=== PATIENT | male | born 1965 ===

== ENCOUNTER 2021-06-27 17:35 | Emergency (ER) | payer OTHER, SELFPAY | END 2021-06-27 19:30 | disposition left against medical advice (07) | PROVIDERS: Emergency Provider Emergency Medicine; PCP Internal Medicine | DX: R05.9 Cough, unspecified (principal); M79.10 Myalgia, unspecified site; R68.83 Chills (without fever) ==

== ENCOUNTER 2021-06-29 21:26 | Emergency (ER) | payer OTHER, SELFPAY ==
--- NOTE | ~2021-06-29 | CT_ITS ---
EXAMINATION: CT ABDOMEN AND PELVIS WITHOUT CONTRAST CLINICAL INFORMATION: Abdominal pain COMPARISON: 02/04/2018 TECHNIQUE: Multidetector volumetric imaging was performed from the superior aspect of the liver through the pubic symphysis. Sagittal and coronal reformatted images were obtained on the technologist's workstation. This CT examination was performed using dose optimization techniques as appropriate, variously including the following: *Automated exposure control *Adjustment of mA and/or kV according to patient size (this includes techniques or standardized protocols for targeted exams where dose is matched to indication/reason for exam; i.e. extremities or head) *Use of iterative reconstruction technique DLP: 405 mGy-cm FINDINGS: LUNG BASES: Tree-in-bud nodular groundglass opacities are seen throughout the lung bases. Mild bronchiectasis. LIVER, GALLBLADDER, AND BILIARY TREE: The liver is normal in size, shape, and attenuation. No focal hepatic lesion or biliary ductal dilatation is present. The gallbladder is unremarkable with no evidence of radiopaque gallstones, gallbladder wall thickening, or obvious pericholecystic inflammatory changes. PANCREAS: Unremarkable. SPLEEN: The spleen is enlarged measuring 14.6 cm in CC dimension. No focal splenic lesion. ADRENAL GLANDS: Unremarkable. KIDNEYS AND URETERS: The kidneys are normal in size, shape, and attenuation. No hydronephrosis, hydroureter, or calculi seen. No perinephric stranding. BLADDER: Unremarkable. GASTROINTESTINAL TRACT: The stomach is unremarkable. Normal caliber small bowel. No obstruction. Mild colonic wall thickening involving the descending colon and proximal sigmoid colon. While there is scattered colonic diverticulosis, this does not appear to represent diverticulitis. No significant formation of the adjacent fat.. ABDOMINAL WALL: No significant hernia is appreciated. LYMPH NODES: Normal. VASCULAR: Normal caliber aorta with mild atherosclerotic calcification. PELVIC VISCERA: The prostate and seminal vesicles are unremarkable. OSSEOUS STRUCTURES: No acute or suspicious osseous abnormality. Mild degenerative change of the spine. CT/CT abdomen pelvis wo con IMPRESSION: Mild wall thickening of the descending colon and sigmoid colon may represent colitis. No significant inflammatory changes of the fat. Mild splenomegaly. Fleischner guidelines were followed.
--- NOTE | 2021-06-29 21:30 | ECG_ITS ---
Test Reason : abdominal pain Blood Pressure : / mmHG Vent. Rate : 080 BPM Atrial Rate : 080 BPM P-R Int : 116 ms QRS Dur : 106 ms QT Int : 418 ms P-R-T Axes : 068 056 061 degrees QTc Int : 482 ms Normal sinus rhythm Prolonged QT Abnormal ECG When compared with ECG of 25-MAR-2017 10:33, No significant change was found Referred By: Viola Nolasco Electronically Signed By:Rashi Valladares
[2021-06-29 21:34] VITALS: BP 130/80; BP 132/96; PULSE 83; PULSE 90; RESP 16; O2SAT 96; O2SAT 98; BMI 22.7
--- NOTE | 2021-06-29 21:37 | ED_ITS ---
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 Related Data Home Medications Medication Instructions Recorded Confirmed cyanocobalamin (vitamin B-12) 2,000 mcg PO DAILY 12/19/20 12/19/20 1,000 mcg tablet (Vitamin B-12) folic acid 1 mg tablet 1 mg PO DAILY 12/19/20 12/19/20 magnesium oxide 400 mg (241.3 mg mg PO 12/19/20 12/19/20 magnesium) tablet quetiapine 50 mg tablet 50 mg PO BEDTIME 12/19/20 12/19/20 Previous Rx's Medication Instructions Recorded lancets 28 gauge (FreeStyle #100 ea 10/09/20 Lancets) blood sugar diagnostic (FreeStyle #10 ea 10/16/20 Lite Strips) metformin 1,000 mg tablet 1,000 mg PO DAILY #90 tab 01/24/21 ondansetron 4 mg disintegrating 4 mg PO Q6H PRN #10 tab 06/29/21 tablet Allergies Allergy/AdvReac Type Severity Reaction Status Date / Time No Known Allergies Allergy Verified 12/19/20 11:02 Review of Systems Review of Systems: Pertinent positives and negatives as stated in HPI 10 point review of systems is otherwise negative. [facility] Past Medical History Source: nursing notes reviewed Surgical History History of appendectomy History of stem cell transplant Family History Family History Father Heart attack Brother Liver transplant complication Social History Social History Housing: Apartment Patient Tobacco Use Status: Current everyday Tobacco user Tobacco use type: Cigarette Cigarettes Per Day: 10 e-Cigarette/Vaping Use: Never Used Second Hand Smoke Exposure: No Advance Directives: No service: No Current occupational status: disabled Physical Exam ED Vital Signs: Vital Signs - 24 hr 06/29/21 21:34 06/29/21 22:02 Temperature 98.6 F Pulse Rate 90 78 Respiratory Rate 16 20 Blood Pressure 132/96 H 114/77 Pulse Oximetry 96 94 BMI result Body Mass Index 22.7 VITAL SIGNS: Reviewed. GENERAL: Well developed, well nourished, in no acute distress. HEAD: Normocephalic/atraumatic EYES: PERRLA, EOMI EARS: Ext canals without abnormality OROPHARYNX: no oral lesions noted, posterior pharynx clear LUNGS: Normal breath sounds without wheeze/rhonchi/rales CARDIOVASCULAR: Regular rate and rhythm without noted murmurs, no JVD or lower extremity edema. ABDOMEN: Soft, non-tender, non-distended with bowel sounds. SKIN: Inspection of the skin reveals no rashes, diaphoretic NEUROLOGIC: Alert and oriented x 4. Strength and sensation to light touch were grossly intact x 4. Course Course Course Narrative: 55-year-old male with history stem cell transplantation for myelofibrosis presents with chills, body aches and diaphoresis for the past couple of days and states his blood sugars have been within normal limits. [facility]: Antwan Murphy ([phone] after hours [phone]) Reevaluation(s) Reevaluation #1: Called and spoke with missionary coordinator Heme-Onc fellow, Dr Berry who acknowledges all lab results and agrees with re-hydration and will inform Dr Murphy. Time: 23:55 Medical Decision Making Lab Data Result diagrams: 06/29/21 22:00 06/29/21 22:00 Labs: Lab Results 06/29/21 06/29/21 06/29/21 Range/Units 22:00 22:00 22:00 WBC 7.7 (4.8-10.8) X10*3/uL RBC 4.51 L (4.60-5.80) X10*6/uL Hgb 13.3 L (14.0-18.0) g/dl Hct 40.6 L (42.0-52.0) % MCV 90.0 (80.0-98.0) fL MCH 29.5 (27.0-33.0) pg MCHC 32.8 (31.0-36.0) g/dl RDW 14.5 (11.0-16.0) % Plt Count 60 L (160-400) X10*3/uL MPV 10.4 (9.4-12.4) fL Immature Gran % (Auto) 0.3 (0.0-0.4) % Neut % (Auto) 56.7 (45-73) % Lymph % (Auto) 36.1 (20-40) % [place] % (Auto) 6.3 (2-11) % Eos % (Auto) 0.3 (0-4) % Baso % (Auto) 0.3 (0-2) % Lymph # (Auto) 2.8 (1.2-4.9) X10*3/uL [place] # (Auto) 0.5 (0.1-1.2) X10*3/uL Eos # (Auto) 0.0 (0.0-0.4) X10*3/uL Baso # (Auto) 0.0 (0.0-0.2) X10*3/uL Abs Immat Gran (auto) 0.02 (0.00-0.03) X10*3/uL Absolute Neuts (auto) 4.4 (2.0-8.3) x10*3/uL Absolute Nucleated RBC 0.000 (0.0-0.012) X10*3/uL Nucleated RBC % (auto) 0.0 (0.0-0.2) /100WBC Smear Tech's Comments VERIFIED PT 14.1 H (9.9-13.0) SEC INR 1.2 H (0.9-1.1) Sodium 135 (135-145) mmol/L Potassium 4.6 (3.3-5.1) mmol/L Chloride 100 (96-108) mmol/L Carbon Dioxide 24 (22-29) mmol/L Anion Gap 16 (12-20) BUN 34 H (9-16) mg/dL Creatinine 1.48 H (0.5-1.4) mg/dL Estim Creat Clear Calc 51.2 Estimated GFR 49 Random Glucose 124 H (60-115) mg/dL Calcium 9.8 (8.4-10.2) mg/dL Total Bilirubin 0.8 (0.0-1.0) mg/dL AST 34 (5-37) U/L ALT 31 (0-40) U/L Alkaline Phosphatase 103 (39-117) U/L Lactate Dehydrogenase (118-273) U/L Total Protein 9.2 H (6.5-8.0) g/dL Albumin 4.8 (3.5-5.0) g/dL Acetone, Qual Negative (Negative) Influenza Type A (PCR) (Negative) Influenza Type B (PCR) (Negative) RSV RNA Qual (PCR) (Negative) SARS-CoV-2 RNA (RT-PCR) (Negative) 06/29/21 06/29/21 Range/Units 22:00 22:00 WBC (4.8-10.8) X10*3/uL RBC (4.60-5.80) X10*6/uL Hgb (14.0-18.0) g/dl Hct (42.0-52.0) % MCV (80.0-98.0) fL MCH (27.0-33.0) pg MCHC (31.0-36.0) g/dl RDW (11.0-16.0) % Plt Count (160-400) X10*3/uL MPV (9.4-12.4) fL Immature Gran % (Auto) (0.0-0.4) % Neut % (Auto) (45-73) % Lymph % (Auto) (20-40) % [place] % (Auto) (2-11) % Eos % (Auto) (0-4) % Baso % (Auto) (0-2) % Lymph # (Auto) (1.2-4.9) X10*3/uL [place] # (Auto) (0.1-1.2) X10*3/uL Eos # (Auto) (0.0-0.4) X10*3/uL Baso # (Auto) (0.0-0.2) X10*3/uL Abs Immat Gran (auto) (0.00-0.03) X10*3/uL Absolute Neuts (auto) (2.0-8.3) x10*3/uL Absolute Nucleated RBC (0.0-0.012) X10*3/uL Nucleated RBC % (auto) (0.0-0.2) /100WBC Smear Tech's Comments PT (9.9-13.0) SEC INR (0.9-1.1) Sodium (135-145) mmol/L Potassium (3.3-5.1) mmol/L Chloride (96-108) mmol/L Carbon Dioxide (22-29) mmol/L Anion Gap (12-20) BUN (9-16) mg/dL Creatinine (0.5-1.4) mg/dL Estim Creat Clear Calc Estimated GFR Random Glucose (60-115) mg/dL Calcium (8.4-10.2) mg/dL Total Bilirubin (0.0-1.0) mg/dL AST (5-37) U/L ALT (0-40) U/L Alkaline Phosphatase (39-117) U/L Lactate Dehydrogenase 191 (118-273) U/L Total Protein (6.5-8.0) g/dL Albumin (3.5-5.0) g/dL Acetone, Qual (Negative) Influenza Type A (PCR) NEGATIVE (Negative) Influenza Type B (PCR) NEGATIVE (Negative) RSV RNA Qual (PCR) POSITIVE A (Negative) SARS-CoV-2 RNA (RT-PCR) NEGATIVE (Negative) ECG Data Attestation: I personally reviewed and interpreted this ECG as follows: Prior ECG tracings: available for review Interpretation: Normal sinus rhythm, HR-80, no STEMI, AR/QRS/QTC are within normal limits. Discharge Plan Discharge Clinical Impression: Viral syndrome, RSV infection Patient Disposition: Home, Self-Care Instructions: Respiratory Syncytial Virus (ED), Viral Syndrome (ED) Additional Instructions: 1. Resume all home medications as prescribed. 2. Continue to drink plenty of fluids, especially water. Use the medications provided to control your feelings of nausea. 3. Recommend [id number] Tylenol/ibuprofen as needed for body aches and chills. 4. Follow-up with primary care provider by calling the office in the morning. Return to the ER for worsening symptoms. Prescriptions: New ondansetron 4 mg tablet,disintegrating 4 mg PO Q6H PRN (Reason: nausea and vomiting) Qty: 10 0RF No Action (DME) lancets [FreeStyle Lancets] 28 gauge misc See Rx Instructions .ROUTE .MEDSUPPLY Qty: 100 8RF Rx Instructions: to use three times a day (DME) FreeStyle Lite Strips Strip See Rx Instructions .ROUTE .MEDSUPPLY Qty: 10 8RF Rx Instructions: use 3 times a day metformin 1,000 mg tablet 1,000 mg PO DAILY Qty: 90 8RF quetiapine 50 mg tablet 50 mg PO BEDTIME 0RF folic acid 1 mg tablet 1 mg PO DAILY 0RF cyanocobalamin (vitamin B-12) [Vitamin B-12] 1,000 mcg tablet 2,000 mcg PO DAILY 0RF magnesium oxide 400 mg (241.3 mg magnesium) tablet PO 0RF Referrals: Desmond Blount MD [Primary Care Provider] - 2 days
[2021-06-29 22:02] VITALS: BP 114/77; PULSE 78; RESP 20; TEMP 37; O2SAT 94
[2021-06-29 22:33] LABS: Hemoglobin 13.3 g/dl (14.0-18.0); PLT CLUMP 1; SCAN SMEAR FLAG 1
[2021-06-29 22:34] LABS: Lactate Dehydrogenase 191 U/L (118-273)
[2021-06-29 22:35] LABS: Basophils Percent Auto 0.3 % (0-2); Eosinophils Percent Auto 0.3 % (0-4); Hematocrit 40.6 % (42.0-52.0); Imm Gran Abs Auto 0.02 X10*3/uL (0.00-0.03); Imm Gran Pct Auto 0.3 % (0.0-0.4); Lymphocytes Absolute Auto 2.8 X10*3/uL (1.2-4.9); Lymphocytes Percent Auto 36.1 % (20-40); MANUAL DIFF FLAG SCAN; Mean Corpuscular HGB Conc 32.8 g/dl (31.0-36.0); Mean Corpuscular Hemoglobin 29.5 pg (27.0-33.0); Mean Platelet Volume 10.4 fL (9.4-12.4); Monocytes Absolute Auto 0.5 X10*3/uL (0.1-1.2); Monocytes Percent Auto 6.3 % (2-11); Neutrophils Absolute Auto 4.4 x10*3/uL (2.0-8.3); Neutrophils Percent Auto 56.7 % (45-73); Red Blood Count 4.51 X10*6/uL (4.60-5.80); Red Cell Distribution Width 14.5 % (11.0-16.0)
[2021-06-29 22:36] LABS: White Blood Count 7.7 X10*3/uL (4.8-10.8)
[2021-06-29 22:37] LABS: Platelet Count 60 X10*3/uL (160-400)
[2021-06-29 22:38] LABS: Alanine Aminotransferase 31 U/L (0-40); Albumin Level 4.8 g/dL (3.5-5.0); Alkaline Phosphatase 103 U/L (39-117); Anion Gap 16 (12-20); Aspartate Amino Transferase 34 U/L (5-37); Bilirubin Total 0.8 mg/dL (0.0-1.0); Blood Urea Nitrogen 34 mg/dL (9-16); Calcium 9.8 mg/dL (8.4-10.2); Carbon Dioxide 24 mmol/L (22-29); Chloride 100 mmol/L (96-108); Creatinine Clr Calc Pharmacy 51.2; Estimated Glomerular Filt Rate 49; Glucose Random 124 mg/dL (60-115); Potassium 4.6 mmol/L (3.3-5.1); Sodium 135 mmol/L (135-145); Total Protein 9.2 g/dL (6.5-8.0)
[2021-06-29 22:42] LABS: INTERNATIONAL NORM RATIO 1.2 (0.9-1.1); Prothrombin Time 14.1 SEC (9.9-13.0)
[2021-06-29 22:47] LABS: Influenza A PCR NEGATIVE (Negative); Influenza B PCR NEGATIVE (Negative); Resp Syncy Virus RNA Qual PCR POSITIVE (Negative); SARS COV2 PCR INHOUSE NEGATIVE (Negative)
[2021-06-29] MEDS: 0.9 % Sodium Chloride 1,000 ML 999 ML IV (23:06)
[2021-06-29 23:15] LABS: Acetone, serum QL Negative (Negative)
[2021-06-29 23:18] LABS: SLIDE REVIEW VERIFIED
[2021-06-29 23:56] LABS: Glucose, Whole Blood 98 mg/dL (60-115)
== END 2021-06-30 00:34 | disposition home or self-care (01) ==
PROVIDERS: Emergency Provider Student in an Organized Health Care Education/Training Program; PCP Internal Medicine
DX: B34.9 Viral infection, unspecified (principal); J22 Unspecified acute lower respiratory infection; R10.9 Unspecified abdominal pain; M79.10 Myalgia, unspecified site; F17.210 Nicotine dependence, cigarettes, uncomplicated; Z20.822 Contact with and (suspected) exposure to COVID-19; Z71.6 Tobacco abuse counseling; Z79.899 Other long term (current) drug therapy
CPT/HCPCS: 0241U; 36415; 74176; 80053; 82009; 82947; 83615; 85025; 85610; 93005; 99284

== ENCOUNTER 2022-10-19 06:51 | Outpatient (REF) | payer OTHER, SELFPAY ==
[2022-10-19 08:09] LABS: Alanine Aminotransferase 16 U/L (0-40); Albumin Level 4.5 g/dL (3.5-5.0); Alkaline Phosphatase 91 U/L (39-117); Anion Gap 12 (12-20); Aspartate Amino Transferase 18 U/L (5-37); Bilirubin Total 0.6 mg/dL (0.0-1.0); Blood Urea Nitrogen 18 mg/dL (9-16); Calcium 9.9 mg/dL (8.4-10.2); Carbon Dioxide 28 mmol/L (22-29); Chloride 104 mmol/L (96-108); Cholesterol 171 mg/dL; Estimated Glomerular Filt Rate > 60; Glucose Fasting 164 mg/dL (60-99); HDL Cholesterol 33 mg/dL; LDL Cholesterol Calculated 103 mg/dl; Potassium 4.4 mmol/L (3.3-5.1); Sodium 140 mmol/L (135-145); Total Protein 7.7 g/dL (6.5-8.0); Triglycerides 177 mg/dL
[2022-10-19 08:25] LABS: Thyroid Stimulating Hormone 4.03 uIU/mL (0.32-4.0)
[2022-10-25 16:09] LABS: Testosterone, Free 45.8 pg/mL (35.0-155.0); Testosterone, Total 301 ng/dL (250-1100)
== END 2022-10-19 06:52 | disposition home or self-care (01) ==
LOC: HO.LAB 06:51
PROVIDERS: PCP Internal Medicine; Visit Provider Internal Medicine
DX: D64.9 Anemia, unspecified (principal); E03.9 Hypothyroidism, unspecified; R79.89 Other specified abnormal findings of blood chemistry; E78.5 Hyperlipidemia, unspecified; N28.9 Disorder of kidney and ureter, unspecified
CPT/HCPCS: 36415; 80053; 80061; 84402; 84403; 84443; 85025

== ENCOUNTER 2022-10-30 08:32 | Outpatient (AMB) | payer OTHER, SELFPAY ==
[2022-10-30 08:32] VITALS: BP 118/80; PULSE 88; O2SAT 96; BMI 22.3
--- NOTE | 2022-10-30 08:32 | A.OFFPC_ITS ---
Vital Signs 10/30/22 08:32 Height 5 ft 7 in Weight 142 lb 2 oz BMI 22.3 BP 118/80 Blood Pressure Location Lt brachial Position Sitting Pulse 88 Pulse Source Pulse Oximeter Pulse Oximetry (%) 96 Oxygen Delivery Method Room Air Intake Visit Reasons: Lab Results Doctor Of Audiology Required: No Accompanied by: Self / Same As Patient Allergies No Known Allergies Allergy (Verified 10/30/22 08:33) Tobacco use date assessed: 10/30/22 Dental Screening Dental Screen Date: 10/30/22 Did you have a dental visit in the last 12 months?: No Did you have a dental problem in the last 6 months where you did not have access to dental care?: No Was dental information given to patient?: No HPI Lab Results HPI Details Has DM with an A1C over 7; was on rx in the past [facility] Surgical History History of appendectomy History of stem cell transplant Family History Father Heart attack Brother Liver transplant complication Social History Housing: Apartment Patient Tobacco Use Status: Current everyday Tobacco user Tobacco use type: Cigarette Cigarette Packs Per Day: 1 Cigarettes Per Day: 20 e-Cigarette/Vaping Use: Never Used Second Hand Smoke Exposure: No service: No Current occupational status: disabled Cognitive needs: No Hearing needs: No Vision needs: No Questionnaire PHQ-9 Over the last 2 weeks, how often have you been bothered by any of the following problems? 1. Little interest or pleasure in doing things: several days 2. Feeling down, depressed, or hopeless: several days 3. Trouble falling or staying asleep, or sleeping too much: not at all 4. Feeling tired or having little energy: nearly every day 5. Poor appetite or overeating: several days 6. Feeling bad about yourself - or that you are a failure or have let yourself or your family down: not at all 7. Trouble concentrating on things, such as reading the newspaper or watching television: more than half the days 8. Moving or speaking so slowly that other people could have noticed. Or the opposite - being so fidgety or restless that you have been moving around a lot more than usual: nearly every day 9. Thoughts that you would be better off or of hurting yourself in some way: not at all Total score: 11 Depression Screening Interpretation: Negative 53089 - PHQ-9 Billing: Yes Source: Developed by Drs. Rich Bartholomew, Carol Godinez, Ishan Aviles and colleagues, with an educational karthik from [employer] Thrive Questionnaire Date Thrive assessed: 10/30/22 I am a: Patient What is your living situation today?: I have a steady place to live Within the past 12 months, did the food you bought not last and you didn't have the money to get more?: Never true Within the past 12 months, did you worry whether your food would run out before you got money to buy more?: Never true Do you have trouble paying for medicines?: No Do you have trouble getting transportation to medical appointments?: No Do you have trouble paying your heating and electricity bill?: No Do you have trouble taking care of your child, family member or friend?: No Do you have trouble with day-to-day activities such as bathing, preparing meals, shopping, managing finances, etc.?: No Are you currently unemployed and looking for a job?: No Are you interested in more education?: No Please select the resources that you would like help with: None Currently or been in a relationship where the following occur: no concerns reported AUDIT C Alcohol Use Questionnaire (AUDIT-C) 1. How often do you have a drink containing alcohol?: Never 3. How often do you have six or more drinks on one occasion?: Never Total Score: 0 KEILA-7 AMB Questionnaire KEILA-7 Date KEILA - 7 assessed: 10/30/22 Feeling nervous, anxious, or on edge: 3 = Nearly every day Not being able to stop or control worryin = More than half the days Worrying too much about different things: 2 = More than half the days Trouble relaxin = More than half the days Being so restless that it is hard to sit still: 3 = Nearly every day Becoming easily annoyed or irritable: 3 = Nearly every day Feeling afraid as if something awful might happen: 0 = Not at all Total KEILA-7 score (0-4 normal; 5-9 mild; 10-14 moderate; 15-21 severe): 15 Source: Developed by Drs. Rich Bartholomew, Carol Godinez, Ishan Aviles and colleagues, with an educational karthik from [employer] KEILA-7 Assessment Billing KEILA-7 Assessment Tool: KEILA-7 Assessment 73916 Review of Systems Const Denies chills, Denies headache(s) and Denies weight loss ENT Denies headache(s) Card Denies chest pain, Denies syncope, Denies irregular heart rhythm and Denies dyspnea Resp Denies chest congestion, Denies cough and Denies dyspnea GI Denies abdominal pain, Denies change in stool character, Denies nausea and Denies vomiting Musc Denies deformity and Denies joint swelling Neuro Denies syncope and Denies headache(s) Physical exam (Primary Care) Vital Signs: Last Vital Signs Pulse 88 10/30/22 08:32 BP 118/80 10/30/22 08:32 Pulse Ox 96 10/30/22 08:32 Oxygen Delivery Method Room Air 10/30/22 08:32 BMI result Body Mass Index 22.3 Tobacco/Smoking Status: Tobacco use Status Tobacco use date assessed 10/30/22 10/30/22 08:39 Patient Tobacco Use Status Current everyday Tobacco 10/30/22 08:39 Tobacco use type Cigarette 10/30/22 08:39 e-Cigarette/Vaping Use Never Used 10/30/22 08:39 Are you ready to quit: No Tobacco cessation counseling provided: Yes Number of minutes spent counselin CPT code: 62799 - 4-10 Minutes PHQ-9: PHQ-9 Score PHQ-9: Total score 11 10/30/22 08:39 Depression Screening Interpretation: Negative Thrive Assessment: Date of Thrive Assessment Date Thrive assessed 10/30/22 10/30/22 08:39 Currently or been in a relationship where the following occur: no concerns rep orted Const General: comfortable, no acute distress and alert Neck Neck: Yes no lymphadenopathy Thyroid: Thyroid normal Resp Effort & Inspection: normal respiratory effort Auscultation: clear to auscultation bilaterally Percussion: percussion normal Cardio Jugular venous distension: no JVD Palpation: normal PMI Rate: regular rate Rhythm: regular rhythm Heart sounds: S1 normal heart sound present and S2 normal heart sound present GI Inspection: Yes normal to inspection Palpation (GI): No hepatosplenomegaly present Skin General skin exam: no rashes or lesions noted Extrem General: Yes no clubbing, cyanosis or edema Assessment and Plan Assessment & Plan (1) Diabetes mellitus: Code(s): E11.9 - Type 2 diabetes mellitus without complications Plan: discussed exercise and diet; rx sent Orders: Orders Hemoglobin A1c Today R73.9 - Hyperglycemia, unspecified Glucose Fasting Today R73.9 - Hyperglycemia, unspecified Medications: New metformin 1,000 mg PO DAILY 90 tabs 2RF Coding Level of Care Code Est Pt Level 4 (91989) Diagnoses Diabetes mellitus E11.9 Additional Codes KEILA-7 Assessment Billing - KEILA-7 Assessment Tool: KEILA-7 Assessment 28809 ([id number]) Vital Signs *Quality* - CPT code: 72961 - 4-10 Minutes ([id number])
== END 2022-10-30 08:59 | disposition home or self-care (01) ==
PROVIDERS: PCP Internal Medicine; Visit Provider Internal Medicine
DX: E11.9 Type 2 diabetes mellitus without complications (principal)
CPT/HCPCS: 99214

== ENCOUNTER 2023-05-27 08:47 | Emergency (ER) | payer OTHER, SELFPAY ==
--- NOTE | ~2023-05-27 | XR_ITS ---
EXAMINATION: XR ANKLE LEFT XR FOOT LEFT CLINICAL INFORMATION: Pain after heavy object fell on ankle/foot. COMPARISON: None TECHNIQUE: Left ankle, 3 views Left foot, 3 views FINDINGS: Ankle: The talar dome is well-positioned within the mortise. There is an acute, nondisplaced, transverse fracture at the base of the medial malleolus. The medial malleolar fragment measures 1.6 cm in length. Soft tissues are swollen at the medial ankle. The talocrural joint space and syndesmotic space are normal. Foot: Bones have normal alignment throughout the foot. No acute fracture or subluxation. The joint spaces are maintained. No radiopaque foreign bodies. XR/XR foot LT min 3V IMPRESSION: * There is an acute, nondisplaced fracture of the medial malleolus with adjacent soft tissue swelling. * No evidence of acute osseous injury within the left foot.
--- NOTE | ~2023-05-27 | XR_ITS ---
EXAMINATION: XR ANKLE LEFT XR FOOT LEFT CLINICAL INFORMATION: Pain after heavy object fell on ankle/foot. COMPARISON: None TECHNIQUE: Left ankle, 3 views Left foot, 3 views FINDINGS: Ankle: The talar dome is well-positioned within the mortise. There is an acute, nondisplaced, transverse fracture at the base of the medial malleolus. The medial malleolar fragment measures 1.6 cm in length. Soft tissues are swollen at the medial ankle. The talocrural joint space and syndesmotic space are normal. Foot: Bones have normal alignment throughout the foot. No acute fracture or subluxation. The joint spaces are maintained. No radiopaque foreign bodies. XR/XR ankle LT min 3V IMPRESSION: * There is an acute, nondisplaced fracture of the medial malleolus with adjacent soft tissue swelling. * No evidence of acute osseous injury within the left foot.
[2023-05-27 08:55] VITALS: BP 109/74; PULSE 111; RESP 19; TEMP 36.6; O2SAT 98; BMI 21.1
[2023-05-27] MEDS: Ketorolac Tromethamine 30 MG/ML VIAL IM (09:40)
--- NOTE | 2023-05-27 09:55 | ED_ITS ---
HPI - Extremity Injury (Lower) General Chief Complaint: Extremity Injury, Lower Stated Complaint: Ankle injury Time Seen by Provider: 05/27/23 09:07 Source: patient, RN notes reviewed and old records reviewed Mode of arrival: ambulatory History of Present Illness HPI Narrative: 57-year-old male with a past medical history of diabetes, thrombocytosis, presenting to the ED complaining of left foot and ankle pain/swelling s/p dresser falling onto him yesterday. States was moving a dresser solo when accidentally fell onto foot. Has been minimally ambulatory secondary to pain. Denies injury to other area, head trauma or LOC, numbness/tingling Related Data Home Medications Medication Instructions Recorded Confirmed cyanocobalamin (vitamin B-12) 2,000 mcg PO DAILY 12/19/20 10/14/22 1,000 mcg tablet (Vitamin B-12) folic acid 1 mg tablet 1 mg PO DAILY 12/19/20 10/14/22 magnesium oxide 400 mg (241.3 mg mg PO 12/19/20 10/14/22 magnesium) tablet quetiapine 50 mg tablet 50 mg PO BEDTIME 12/19/20 10/14/22 Previous Rx's Medication Instructions Recorded lancets 28 gauge (FreeStyle #100 ea 10/09/20 Lancets) blood sugar diagnostic (FreeStyle #10 ea 10/16/20 Lite Strips) metformin 1,000 mg tablet 1,000 mg PO DAILY #90 tabs 10/30/22 acetaminophen 500 mg tablet 500 mg PO Q6H PRN fever or pain 05/27/23 (Tylenol Extra Strength) #14 tabs ketorolac 10 mg tablet 10 mg PO TID PRN pain 5 days #15 05/27/23 tabs Allergies Allergy/AdvReac Type Severity Reaction Status Date / Time No Known Allergies Allergy Verified 05/27/23 08:55 Review of Systems Review of Systems: Constitutional: No Fever, No Chills ENT/Mouth: No Ear Pain, No Nasal Congestion, No sore throat, No Rhinorrhea, No Swallowing Difficulty Cardiovascular: No Chest Pain, No SOB Respiratory: No Cough Gastrointestinal: No Nausea, No Vomiting, No Abdominal pain Genitourinary: No Dysuria, No Urinary Frequency, No Hematuria, No Flank Pain Musculoskeletal: + joint pain, No Myalgias, +Joint Swelling Skin: No Skin Lesions, No rash Neuro: No Weakness, No Numbness, No Paresthesias Yes all other systems are reviewed and are negative Constitutional: Constitutional: Reports as per [facility] Past Medical History Attestation statement: The following information was validated with the patient. Source: old records reviewed Surgical History History of stem cell transplant History of appendectomy Family History Family History Father Heart attack Brother Liver transplant complication Social History Social History Housing: Apartment Patient Tobacco Use Status: Current everyday Tobacco user Tobacco use type: Cigarette Cigarette Packs Per Day: 1 Cigarettes Per Day: 20 e-Cigarette/Vaping Use: Never Used Second Hand Smoke Exposure: No Advance Directives: No service: No Current occupational status: disabled Cognitive needs: No Hearing needs: No Vision needs: No Physical Exam Vital Signs: Vital Signs: Last Vital Signs Temp 98 F 05/27/23 08:55 Pulse 111 H 05/27/23 08:55 Resp 19 05/27/23 08:55 BP 109/74 05/27/23 08:55 Pulse Ox 98 05/27/23 08:55 O2 Del Method Room Air 05/27/23 08:55 BMI result Body Mass Index 21.1 Const: General: cooperative, healthy appearing and no acute distress Orientation/consciousness: patient oriented x3 Limitations: no limitations HEENT: Head: Yes normal to inspection and Yes atraumatic Ears: hearing grossly normal bilaterally General nose exam: Normal external nose present Face and sinus: Yes normal facial exam Eyes: General: appearance normal, both eyes and all related structures EOM: EOMs intact bilaterally Neck: Neck: Yes normal visual inspection and Yes no meningeal signs Resp: Effort & Inspection: normal respiratory effort and no respiratory distress Cardio: Rate: regular rate Skin: Rashes: no rashes Wounds: no wounds Neuro: General: patient oriented x3, tone normal and no meningeal signs Cranial nerves: Yes CN's II-XII intact bilaterally Gait exam (Neuro): Normal gait present Extrem: Other: Left ankle/proximal foot with noted swelling and diffuse tenderness to palpation. Limited ROM secondary to pain. No erythema/ecchymosis or crepitus. Neurovascularly intact. Course Course Course Narrative: XR foot LT min 3V/XR ankle LT min 3V IMPRESSION: * There is an acute, nondisplaced fracture of the medial malleolus with adjacent soft tissue swelling. * No evidence of acute osseous injury within the left foot. > posterior short-leg with stirrup and crutches applied Medications Administered Discontinued Medications Generic Name Dose Route Start Last Admin Trade Name Freq PRN Reason Stop Dose Admin Ketorolac Tromethamine 30 mg 05/27/23 09:26 05/27/23 09:40 Ketorolac Tromethamine 30 Mg/Ml Vial IM 05/27/23 09:27 30 mg ONCE ONE Administration Medical Decision Making Medical Decision Making MDM Narrative: 57-year-old male with a past medical history of diabetes, thrombocytosis, presenting to the ED complaining of left foot and ankle pain/swelling s/p dresser falling onto him yesterday. On exam tachycardic likely from pain, NAD/nontoxic appearing, physical exam as noted above. Concern for ankle sprain vs fracture. No evidence of septic joint/arthritis. Low suspicion for osteomyelitis, Achilles tendon rupture or gastroc injury Plan: X-ray, pain control Please refer to course for remaining clinical decision making, interpretation of labs/imaging results, and discussions with consultants and/or family members. Differential Diagnosis Differential Diagnoses: The differential diagnosis associated with the presentation includes As above Independent Interpretation I performed an independent interpretation of an: Plain X-Ray Radiology Impression Discussion of test interpretation with radiology: I have reviewed the radiologist's reading. External Record Review External record reviewed: Inpatient record, Office record, Outpatient record, Prior outpatient labs, Prior outpatient radiology, Primary care record and Outside ED record Tests considered The following testing was considered but not selected: As above Prescription Management I considered prescription management with: Pain Medication Procedures Orthopedic Splinting/Casting Injury #1: Side: left Lower Extremity Injury Location: lower leg Lower Extremity Immobilizer: posterior splint and stirrup splint Other Orthopedic Equipment: crutches Discharge Plan Discharge Clinical Impression: Medial malleolar fracture Patient Disposition: Home, Self-Care Instructions: Ankle Fracture (DC) Additional Instructions: You have a broken ankle. Please keep splint on, dry and clean Use crutches DO NOT BEAR ANY WEIGHT ON YOUR LEFT LEG CALL ORTHOPEDICS FOR CLOSE FOLLOW-UP IN 1 WEEK Toradol as an anti-inflammatory/pain medication, take with food In addition take Tylenol If her toes become numb/discolored, pain is unbearable remove splint return to the ED immediately Prescriptions: New acetaminophen [Tylenol Extra Strength] 500 mg tablet 500 mg PO Q6H PRN (Reason: fever or pain) Qty: 14 0RF ketorolac 10 mg tablet 10 mg PO TID PRN (Reason: pain) 5 Days Qty: 15 0RF No Action (DME) lancets [FreeStyle Lancets] 28 gauge misc See Rx Instructions .ROUTE .MEDSUPPLY Qty: 100 8RF Rx Instructions: to use three times a day (DME) FreeStyle Lite Strips Strip See Rx Instructions .ROUTE .MEDSUPPLY Qty: 10 8RF Rx Instructions: use 3 times a day quetiapine 50 mg tablet 50 mg PO BEDTIME folic acid 1 mg tablet 1 mg PO DAILY cyanocobalamin (vitamin B-12) [Vitamin B-12] 1,000 mcg tablet 2,000 mcg PO DAILY magnesium oxide 400 mg (241.3 mg magnesium) tablet PO metformin 1,000 mg tablet 1,000 mg PO DAILY Qty: 90 2RF Referrals: [facility] [Provider Group] - 1 week
== END 2023-05-27 12:12 | disposition home or self-care (01) ==
PROVIDERS: Emergency Provider Emergency Medicine; PCP Internal Medicine
DX: S82.55XA Nondisplaced fracture of medial malleolus of left tibia, initial encounter for closed fracture (principal); W20.8XXA Other cause of strike by thrown, projected or falling object, initial encounter; Y93.89 Activity, other specified; Y92.032 Bedroom in apartment as the place of occurrence of the external cause; Y99.9 Unspecified external cause status
CPT/HCPCS: 29515; 73610; 73630; 96372; 99283; 99284; J1885

== ENCOUNTER 2023-05-28 14:33 | Outpatient (AMB) | payer OTHER, SELFPAY ==
--- NOTE | 2023-05-28 14:39 | A.OFFVIS_ITS ---
Intake Vital Signs 05/28/23 14:44 Height 5 ft 7 in Weight 135 lb BMI 21.1 Intake Visit Reasons: FC - left ankle fx, DOI 05/26/23 Intake Note: Israel is a 57 year old male who presents today for a evaluation of his left ankle fx, DOI 05/26/23. Patient reports that he was moving furniture and the dresser feel on his left foot. Pain level is a 6/10 on the pain scale per patient. He states having some sharp pain on the medial aspect of the ankle. Denies numbness and tingling. Allergies No Known Allergies Allergy (Verified 05/28/23 14:41) HPI FC - left ankle fx, DOI 05/26/23 HPI Details 57-year-old male who presents in the off ice today, as a new patient, for an evaluation of left foot/ankle pain. The patient presented to the ED on 05/27/2023 status post a dresser falling on him on 05/26/2023. X-rays were obtained. The patient was placed in a posterior short leg with stirrup splint and given crutches. While in the office today the patient reports he was moving a dresser by himself, that he dropped on his left foot. He reports his pain as a 6/10 in the office today. He describes his pain as sharp along the medial aspect of the left ankle. He denies numbness or tingling. [facility] Surgical History History of stem cell transplant History of appendectomy Family History Father Heart attack Brother Liver transplant complication Social History Housing: Apartment Patient Tobacco Use Status: Current everyday Tobacco user Tobacco use type: Cigarette Cigarette Packs Per Day: 1 Cigarettes Per Day: 20 e-Cigarette/Vaping Use: Never Used Second Hand Smoke Exposure: No service: No Current occupational status: disabled Cognitive needs: No Hearing needs: No Vision needs: No Review of Systems Const All systems reviewed & are unremarkable except as noted in HPI and below Physical Exam Vital Signs: BMI result Body Mass Index 21.1 Const General: cooperative and no acute distress Orientation/consciousness: patient oriented x3 Resp Effort & Inspection: normal respiratory effort and able to speak in complete sentences Cardio Peripheral pulses: Peripheral pulses 2+ throughout Skin General skin exam: no rashes or lesions noted Neuro General: patient oriented x3 Extrem Other: Left ankle: Minimal medial sided edema. Extreme tenderness to palpation over the medial malleolus. No tenderness to palpation over the lateral malleolus or the proximal fibula. Able to perform very limited dorsiflexion and plantarflexion because of pain. Sensation intact. Pedal pulse intact. Office Procedures Casting/Splints 34050-[id number] Leg Cast Application Procedure code (CPT) selection complete Fracture Care Fracture Billing Code: Fracture Billing Code Assessment & Plan Assessment & Plan (1) Fracture of medial malleolus, left, closed: Code(s): S82.52XA - Displaced fracture of medial malleolus of left tibia, initial encounter for closed fracture (2) Diabetes mellitus: Code(s): E11.9 - Type 2 diabetes mellitus without complications Plan Mr. Gonzalez is a 57-year-old male who presents in the office today, as a new patient, for an evaluation of left foot/ankle pain. The patient presented to the ED on 05/27/2023 status post a dresser falling on him on 05/26/2023. X-rays were obtained. The patient was placed in a posterior short leg with stirrup splint and given crutches. The patient?s edema is minimal on today?s exam, so the decision has been made to place him in to a short left, custom made, cast. He will remain non-weight bearing. He also understanding he will remain non-weight bearing for a minimum of 6-8 weeks. Follow up will be in 4 weeks, or sooner if needed. X-rays of the left foot/ankle, obtained on 05/27/2023, revealed: * There is an acute, nondisplaced fracture of the medial malleolus with adjacent soft tissue swelling. * No evidence of acute osseous injury within the left foot. Patient Instructions: Scribed by Nicole Sanchez director biomedical engineering, for Sabrina Canela PA-C on 05/28/2023 at 2:38 pm, EST. Coding Level of Care Code New Pt Level 4 (96416) Diagnoses Fracture of medial malleolus, left, closed S82.52XA Diabetes mellitus E11.9 CPT Codes Casting - CPT: 43072-Shkty Leg Cast Application ([id number]) Fracture Care - Fracture Billing Code: Fracture Billing Code ([id number])
[2023-05-28 14:44] VITALS: BMI 21.1
== END 2023-05-28 15:26 | disposition home or self-care (01) ==
PROVIDERS: PCP Internal Medicine; Visit Provider Physician Assistant
DX: S82.55XA Nondisplaced fracture of medial malleolus of left tibia, initial encounter for closed fracture (principal); E11.9 Type 2 diabetes mellitus without complications
CPT/HCPCS: 27760; 99204

== ENCOUNTER → 2023-05-28 14:33 | Outpatient (BNVA) | payer OTHER, SELFPAY | PROVIDERS: PCP Internal Medicine; Visit Provider Physician Assistant | DX: S82.52XA Displaced fracture of medial malleolus of left tibia, initial encounter for closed fracture (principal); E11.9 Type 2 diabetes mellitus without complications | CPT/HCPCS: 99202 ==

== ENCOUNTER 2023-06-18 08:46 | Outpatient (AMB) | payer OTHER, SELFPAY ==
--- NOTE | 2023-06-18 08:48 | A.OFFVIS_ITS ---
Intake Vital Signs 06/18/23 08:49 Height 5 ft 7 in Weight 135 lb BMI 21.1 Intake Visit Reasons: OV - left medial malleolus fx, DOI 05/26/23 Intake Note: Israel is a 57 year old male who presents today for a evaluation of his left medial malleolus fx, DOI 05/26/23. Patient reports he is still having some dull pain on the top of his foot. He states that his pain is worse at night. Allergies No Known Allergies Allergy (Verified 06/18/23 09:04) HPI OV - left medial malleolus fx, DOI 05/26/23 HPI Details 57-year-old male who presents in the off ice today for a follow up of a left ankle medial malleolus fracture, which occurred on 05/26/2023 status post a dresser falling on his left foot. I last saw the patient in the office on 05/28/2023 at which time he was placed in a short leg cast and he was instructed to remain non-weight bearing. While in the office today the patient reports having some dull pain on the top of his foot. He also reports and increase in pain at night. [facility] Surgical History History of stem cell transplant History of appendectomy Family History Father Heart attack Brother Liver transplant complication Social History Housing: Apartment Patient Tobacco Use Status: Current everyday Tobacco user Tobacco use type: Cigarette Cigarette Packs Per Day: 1 Cigarettes Per Day: 20 e-Cigarette/Vaping Use: Never Used Second Hand Smoke Exposure: No service: No Current occupational status: disabled Cognitive needs: No Hearing needs: No Vision needs: No Review of Systems Const All systems reviewed & are unremarkable except as noted in HPI and below Physical Exam Vital Signs: BMI result Body Mass Index 21.1 Const General: cooperative, healthy appearing and no acute distress Resp Effort & Inspection: normal respiratory effort and able to speak in complete sentences Cardio Rate: regular rate Peripheral pulses: Peripheral pulses 2+ throughout GI Palpation (GI): Soft to palpation Skin Lesions: no lesions Rashes: no rashes Extrem Other: Left ankle: Medial malleolus tenderness to palpation. Minimal edema. Able to dorsiflex and plantarflex with pain. Sensation intact. Pedal pulse intact. Office Procedures Casting/Splints [id number] Leg Cast Application Procedure code (CPT) selection complete Assessment & Plan Assessment & Plan (1) Fracture of medial malleolus, left, closed: Code(s): S82.52XA - Displaced fracture of medial malleolus of left tibia, initial encounter for closed fracture Qualifiers: Encounter type: subsequent encounter Fracture alignment: nondisplaced Fracture healing: with routine healing Qualified Code(s): S82.55XD - Nondisplaced fracture of medial malleolus of left tibia, subsequent encounter for closed fracture with routine healing (2) Diabetes mellitus: Code(s): E11.9 - Type 2 diabetes mellitus without complications Plan Mr. Gonzalez is a 57-year-old male who presents in the office today for a follow up of a left ankle medial malleolus fracture, which occurred on 05/26/2023 status post a dresser falling on his left foot. I last saw the patient in the office on 05/28/2023 at which time he was placed in a short leg cast and he was instructed to remain non-weight bearing. While in the office today the patient reports having some dull pain on the top of his foot. He also reports and increase in pain at night. Patient was placed into a custom made short left cast in the office today. He will remain non-weight bearing. Follow up will be in 4 weeks with repeat x-rays, or sooner if needed. X-rays of the left ankle which were obtained while in the office today and were reviewed by me, Sabrina Canela PA-C, revealed routine healing of a left ankle medial malleolus fracture. Orders: Orders XR ankle LT min 3V Today M25.579 - Pain in unspecified ankle and joints of unspecified foot Patient Instructions: Scribed by Nicole Sanchez medical officer psychiatry, for Sabrina Canela PA-C on 06/18/2023 at 8:51 am, EST. Coding Level of Care Code Global (78001) Diagnoses Closed nondisplaced fracture of medial malleolus of left tibia with routine healing, subsequent encounter S82.55XD Encounter type: subsequent encounter Fracture alignment: nondisplaced Fracture healing: with routine healing Diabetes mellitus E11.9 CPT Codes Casting - CPT: 63963-Xisul Leg Cast Application ([id number])
[2023-06-18 08:49] VITALS: BMI 21.1
== END 2023-06-18 09:51 | disposition home or self-care (01) ==
PROVIDERS: PCP Internal Medicine; Visit Provider Physician Assistant
DX: S82.55XD Nondisplaced fracture of medial malleolus of left tibia, subsequent encounter for closed fracture with routine healing (principal); E11.9 Type 2 diabetes mellitus without complications
CPT/HCPCS: 29405; 99024

== ENCOUNTER 2023-06-18 09:31 | Outpatient (REF) | payer OTHER, SELFPAY ==
--- NOTE | ~2023-06-18 | XR_ITS ---
EXAMINATION: XR ANKLE, LEFT CLINICAL INFORMATION: Pain in unspecified ankle and joints of foot. COMPARISON: 05/27/2023 radiographs of the left ankle and foot. TECHNIQUE: AP, lateral, and mortise views of the left ankle. FINDINGS: Redemonstration of a nondisplaced transverse fracture at the base of the medial malleolus. Fracture lines are still visible, but less conspicuous, characteristic of some interval bony bridging. Alignment maintained. Decreased ankle joint effusion and soft tissue swelling. XR/XR ankle LT min 3V IMPRESSION: Healing nondisplaced transverse fracture at the base of the medial malleolus.
== END 2023-06-18 09:32 | disposition home or self-care (01) ==
LOC: HO.HOSX 09:31
PROVIDERS: Visit Provider Physician Assistant
DX: S82.55XD Nondisplaced fracture of medial malleolus of left tibia, subsequent encounter for closed fracture with routine healing (principal); E11.9 Type 2 diabetes mellitus without complications
CPT/HCPCS: 29405; 73610; 99212

== ENCOUNTER 2023-06-28 09:36 | Outpatient (AMB) | payer OTHER, SELFPAY ==
[2023-06-28 09:40] VITALS: BP 98/62; PULSE 112; O2SAT 97; BMI 20.4
--- NOTE | 2023-06-28 09:40 | A.OFFPC_ITS ---
Vital Signs 06/28/23 09:40 Height 5 ft 7 in Weight 130 lb BMI 20.4 BP 98/62 Blood Pressure Location Lt brachial Position Sitting Pulse 112 H Pulse Source Pulse Oximeter Pulse Oximetry (%) 97 Oxygen Delivery Method Room Air Intake Visit Reasons: High blood sugar Inspector Multifocal Lens Required: No Contract Loader: Not Required per policy Accompanied by: Self / Same As Patient Allergies No Known Allergies Allergy (Verified 06/28/23 09:40) Medication List - Last Reconciled 06/28/23 by Desmond lBount MD acetaminophen (Tylenol Extra Strength) 500 mg PO Q6H PRN blood sugar diagnostic (FreeStyle Lite Strips) use 3 times a day cyanocobalamin (vitamin B-12) (Vitamin B-12) 2,000 mcg PO DAILY folic acid 1 mg PO DAILY glyburide 5 mg PO DAILY lancets (FreeStyle Lancets) to use three times a day metformin 1,000 mg PO DAILY quetiapine 50 mg PO BEDTIME Tobacco use date assessed: 06/28/23 Dental Screening Dental Screen Date: 06/28/23 Did you have a dental visit in the last 12 months?: No Did you have a dental problem in the last 6 months where you did not have access to dental care?: No Was dental information given to patient?: Patient has dentist HPI High blood sugar HPI Details unable to tolerate metformin; will change to glyburide [facility], [facility] Surgical History History of stem cell transplant History of appendectomy Family History Father Heart attack Brother Liver transplant complication Social History Housing: Apartment Patient Tobacco Use Status: Current everyday Tobacco user Tobacco use type: Cigarette Cigarette Packs Per Day: 1 Cigarettes Per Day: 20 e-Cigarette/Vaping Use: Never Used Second Hand Smoke Exposure: No service: No Current occupational status: disabled Cognitive needs: No Hearing needs: No Vision needs: No Questionnaire PHQ-9 Over the last 2 weeks, how often have you been bothered by any of the following problems? 1. Little interest or pleasure in doing things: not at all 2. Feeling down, depressed, or hopeless: not at all 3. Trouble falling or staying asleep, or sleeping too much: not at all 4. Feeling tired or having little energy: not at all 5. Poor appetite or overeating: not at all 6. Feeling bad about yourself - or that you are a failure or have let yourself or your family down: not at all 7. Trouble concentrating on things, such as reading the newspaper or watching television: not at all 8. Moving or speaking so slowly that other people could have noticed. Or the opposite - being so fidgety or restless that you have been moving around a lot more than usual: not at all 9. Thoughts that you would be better off or of hurting yourself in some way: not at all Total score: 0 Depression Screening Interpretation: Negative Depression Screening Done: Yes [id number] - PHQ-9 Billing: Yes Source: Developed by Drs. Rich Bartholomew, Carol Godinez, Ishan Aviles and colleagues, with an educational karthik from [employer]. Thrive Questionnaire Date Thrive assessed: 06/28/23 I am a: Patient What is your living situation today?: I have a steady place to live Within the past 12 months, did the food you bought not last and you didn't have the money to get more?: Never true Within the past 12 months, did you worry whether your food would run out before you got money to buy more?: Never true Do you have trouble paying for medicines?: No Do you have trouble getting transportation to medical appointments?: No Do you have trouble paying your heating and electricity bill?: No Do you have trouble taking care of your child, family member or friend?: No Do you have trouble with day-to-day activities such as bathing, preparing meals, shopping, managing finances, etc.?: No Are you currently unemployed and looking for a job?: No Are you interested in more education?: No Please select the resources that you would like help with: None THRIVE Score: 0 AUDIT C Alcohol Use Questionnaire (AUDIT-C) 1. How often do you have a drink containing alcohol?: Never 3. How often do you have six or more drinks on one occasion?: Never Total Score: 0 KEILA-7 AMB Questionnaire KEILA-7 Date KEILA - 7 assessed: 06/28/23 Feeling nervous, anxious, or on edge: 0 = Not at all Not being able to stop or control worryin = Not at all Worrying too much about different things: 0 = Not at all Trouble relaxin = Not at all Being so restless that it is hard to sit still: 0 = Not at all Becoming easily annoyed or irritable: 0 = Not at all Feeling afraid as if something awful might happen: 0 = Not at all Total KEILA-7 score (0-4 normal; 5-9 mild; 10-14 moderate; 15-21 severe): 0 Source: Developed by Drs. Rich Bartholomew, Carol Godinez, Ishan Aviles and colleagues, with an educational karthik from [employer]. Review of Systems Const Denies chills, Denies headache(s) and Denies weight loss ENT Denies headache(s) Card Denies chest pain, Denies syncope, Denies irregular heart rhythm and Denies dyspnea Resp Denies chest congestion, Denies cough and Denies dyspnea GI Denies abdominal pain, Denies change in stool character, Denies nausea and Denies vomiting Musc Denies deformity and Denies joint swelling Neuro Denies syncope and Denies headache(s) Physical exam (Primary Care) Vital Signs: Last Vital Signs Pulse 112 H 06/28/23 09:40 BP 98/62 06/28/23 09:40 Pulse Ox 97 06/28/23 09:40 Oxygen Delivery Method Room Air 06/28/23 09:40 BMI result Body Mass Index 20.4 Tobacco/Smoking Status: Tobacco use Status Tobacco use date assessed 06/28/23 06/28/23 09:41 Patient Tobacco Use Status Current everyday Tobacco 06/28/23 09:41 Tobacco use type Cigarette 06/28/23 09:41 e-Cigarette/Vaping Use Never Used 06/28/23 09:41 PHQ-9: PHQ-9 Score PHQ-9: Total score 0 06/28/23 09:52 Depression Screening Interpretation: Negative Thrive Assessment: Date of Thrive Assessment Date Thrive assessed 06/28/23 06/28/23 09:41 Const General: cooperative, comfortable, no acute distress and alert Neck Neck: Yes no lymphadenopathy Thyroid: Thyroid normal Resp Effort & Inspection: normal respiratory effort Auscultation: clear to auscultation bilaterally Percussion: percussion normal Cardio Jugular venous distension: no JVD Palpation: normal PMI Rate: regular rate Rhythm: regular rhythm Heart sounds: S1 normal heart sound present and S2 normal heart sound present GI Inspection: Yes normal to inspection Palpation (GI): No hepatosplenomegaly present Skin General skin exam: no rashes or lesions noted Extrem General: Yes no clubbing, cyanosis or edema Results AMB Hemoglobin A1c AMB Hemoglobin A1c 9.4 % Last Edit by CARLIE Sierra on 06/28/23 09:53 Results Reviewed Results Reviewed: Laboratory Last Values Hgb A1c (Clinic) 9.4 % (4.0-6.0) H 06/28/23 09:53 Assessment and Plan Assessment & Plan (1) Diabetes mellitus: Code(s): E11.9 - Type 2 diabetes mellitus without complications Plan: rx sent' do labs Orders: Orders AMB Hemoglobin A1c Today E11.9 - Type 2 diabetes mellitus without complications Lipid Panel Today E78.5 - Hyperlipidemia, unspecified Hemoglobin A1c Today R73.9 - Hyperglycemia, unspecified Comprehensive [place]. Panel Fast Today N28.9 - Disorder of kidney and ureter, unspecified Complete Blood Count Auto Diff Today D64.9 - Anemia, unspecified Microalbumin, Random (w Creat) Today E11.69 - Type 2 diabetes mellitus with other specified complication, E66.01 - Morbid (severe) obesity due to excess calories Medications: New glyburide 5 mg PO DAILY 30 tabs 0RF Coding Level of Care Code Est Pt Level 3 (14355) Diagnoses Diabetes mellitus E11.9
== END 2023-06-28 10:03 | disposition home or self-care (01) ==
PROVIDERS: PCP Internal Medicine; Visit Provider Internal Medicine
DX: E11.9 Type 2 diabetes mellitus without complications (principal)
CPT/HCPCS: 83036; 99213

== ENCOUNTER 2023-07-09 11:24 | Outpatient (AMB) | payer OTHER, SELFPAY ==
[2023-07-09 11:26] VITALS: BP 124/58; RESP 102; O2SAT 98; BMI 20.4
--- NOTE | 2023-07-09 11:26 | MHC.PC.OV ---
Vital Signs 07/09/23 11:26 Height 5 ft 7 in Weight 130 lb BMI 20.4 BP 124/58 L Blood Pressure Location Lt brachial Position Sitting Respiration 102 H Pulse Source Pulse Oximeter Pulse Oximetry (%) 98 Oxygen Delivery Method Room Air Intake Visit Reasons: Pain in Left Side of Face/Fever/Congestion Agricultural Produce Packer: Not Required per policy Accompanied by: Self / Same As Patient Allergies No Known Allergies Allergy (Verified 07/09/23 11:27) Tobacco use date assessed: 06/28/23 Dental Screening Dental Screen Date: 06/28/23 HPI Pain in Left Side of Face/Fever/Congestion HPI Details left max sinusitis for a week PFS Surgical History History of stem cell transplant History of appendectomy Family History Father Heart attack Brother Liver transplant complication Social History Housing: Apartment Patient Tobacco Use Status: Current everyday Tobacco user Tobacco use type: Cigarette Cigarette Packs Per Day: 1 Cigarettes Per Day: 20 e-Cigarette/Vaping Use: Never Used Second Hand Smoke Exposure: No service: No Current occupational status: disabled Cognitive needs: No Hearing needs: No Vision needs: No Questionnaire Thrive Questionnaire Date Thrive assessed: 06/28/23 KEILA-7 AMB Questionnaire KEILA-7 Date KEILA - 7 assessed: 06/28/23 Source: Developed by Drs. Rich Bartholomew, Carol Godinez, Ishan Aviles and colleagues, with an educational karthik from [employer]. Review of Systems Const Denies chills, Denies headache(s) and Denies weight loss ENT Denies headache(s) Card Denies chest pain, Denies syncope, Denies irregular heart rhythm and Denies dyspnea Resp Denies chest congestion, Denies cough and Denies dyspnea GI Denies abdominal pain, Denies change in stool character, Denies nausea and Denies vomiting Musc Denies deformity and Denies joint swelling Neuro Denies syncope and Denies headache(s) Physical exam (Primary Care) Vital Signs: Last Vital Signs Resp 102 H 07/09/23 11:26 BP 124/58 L 07/09/23 11:26 Pulse Ox 98 07/09/23 11:26 Oxygen Delivery Method Room Air 07/09/23 11:26 BMI result Body Mass Index 20.4 Tobacco/Smoking Status: Tobacco use Status Tobacco use date assessed 06/28/23 07/09/23 11:31 Patient Tobacco Use Status Current everyday Tobacco 07/09/23 11:31 Tobacco use type Cigarette 07/09/23 11:31 e-Cigarette/Vaping Use Never Used 07/09/23 11:31 Thrive Assessment: Date of Thrive Assessment Date Thrive assessed 06/28/23 07/09/23 11:31 Const General: cooperative, comfortable, no acute distress and alert Neck Neck: Yes no lymphadenopathy Thyroid: Thyroid normal Resp Effort & Inspection: normal respiratory effort Auscultation: clear to auscultation bilaterally Percussion: percussion normal Cardio Jugular venous distension: no JVD Palpation: normal PMI Rate: regular rate Rhythm: regular rhythm Heart sounds: S1 normal heart sound present and S2 normal heart sound present GI Inspection: Yes normal to inspection Palpation (GI): No hepatosplenomegaly present Skin General skin exam: no rashes or lesions noted Extrem General: Yes no clubbing, cyanosis or edema Assessment and Plan Assessment & Plan (1) Sinusitis: Code(s): J32.9 - Chronic sinusitis, unspecified Plan: rx sent Medications: New amoxicillin-pot clavulanate 500-125 mg (Augmentin) 1 tab PO BID 10 tabs 0RF Coding Level of Care Code Est Pt Level 3 (92625) Diagnoses Sinusitis J32.9
== END 2023-07-09 11:40 | disposition home or self-care (01) ==
PROVIDERS: PCP Internal Medicine; Visit Provider Internal Medicine
DX: J32.9 Chronic sinusitis, unspecified (principal)
CPT/HCPCS: 99213

== ENCOUNTER 2023-07-16 08:07 | Outpatient (AMB) | payer OTHER, SELFPAY ==
--- NOTE | 2023-07-16 08:16 | MHC.OFFVIS ---
Intake Intake Visit Reasons: OV-LT medial malleolus fx 05/26/23-xray cast off Intake Note: Israel is a 57 year old male who presents today for a evaluation of his left medial malleolus fx, DOI 05/26/23. Patient reports not having any pain, or discomfort anywhere. Allergies No Known Allergies Allergy (Verified 07/09/23 11:27) HPI OV-LT medial malleolus fx 05/26/23-xray cast off HPI Details 58-year-old male who presents in the office today for a follow up of a left ankle medial malleolus fracture, which occurred on 05/26/2023 status post a dresser falling on his left foot. I last saw the patient in the office on 06/18/2023. At that time he was placed in a custom made short leg cast and he was instructed to remain non-weight bearing. While in the office today the patient reports having no pain or discomfort. [facility]MERLY [facility] Surgical History History of stem cell transplant History of appendectomy Family History Father Heart attack Brother Liver transplant complication Social History (Updated 07/16/23 @ 08:34 by Basia Hickman) Housing: Apartment Alcohol intake: never Patient Tobacco Use Status: Current everyday Tobacco user Tobacco use type: Cigarette Cigarette Packs Per Day: 1 Cigarettes Per Day: 20 e-Cigarette/Vaping Use: Never Used Second Hand Smoke Exposure: No Substance Use Type: Marijuana service: No Current occupational status: disabled Cognitive needs: No Hearing needs: No Vision needs: No Review of Systems Const All systems reviewed & are unremarkable except as noted in HPI and below Physical Exam Const General: cooperative, healthy appearing and no acute distress Resp Effort & Inspection: normal respiratory effort and able to speak in complete sentences Cardio Rate: regular rate Peripheral pulses: Peripheral pulses 2+ throughout GI Palpation (GI): Soft to palpation Skin Lesions: no lesions Rashes: no rashes Extrem Other: Left ankle: Normal to inspection. No ecchymosis, erythema, or edema. Slight tenderness to palpation over the medial malleolus. No tenderness to palpation lateral malleolus. Full dorsiflexion and plantarflexion. Slight stiffness with inversion and eversion. Sensation intact. Pedal pulse intact. Assessment & Plan Assessment & Plan (1) Fracture of medial malleolus, left, closed: Code(s): S82.52XA - Displaced fracture of medial malleolus of left tibia, initial encounter for closed fracture Qualifiers: Encounter type: subsequent encounter Fracture alignment: nondisplaced Fracture healing: with routine healing Qualified Code(s): S82.55XD - Nondisplaced fracture of medial malleolus of left tibia, subsequent encounter for closed fracture with routine healing (2) Diabetes mellitus: Code(s): E11.9 - Type 2 diabetes mellitus without complications Plan Mr. Gonzalez is a 58-year-old male who presents in the office today for a follow up of a left ankle medial malleolus fracture, which occurred on 05/26/2023 status post a dresser falling on his left foot. I last saw the patient in the office on 06/18/2023. At that time he was placed in a custom made short leg cast and he was instructed to remain non-weight bearing. While in the office today the patient reports having no pain or discomfort. Patient was transitioned in to a tall walking boot, off the shelf. A referral for PT was place in the office today with the goal or weaning out of the boot in 2 weeks. Follow up will be in 4-6 weeks for a ROM check, or sooner if needed. X-rays of the left ankle which were obtained while in the office today and were reviewed by me, Sabrina Canela PA-C, revealed routine healing of a left medial malleolus fracture. Orders: Orders XR ankle LT min 3V Today M25.579 - Pain in unspecified ankle and joints of unspecified foot Patient Instructions: Scribed by Nicole Sanchez medical transcriber, for Sabrina Canela PA-C on 07/16/2023 at 8:10 am, EST. Coding Level of Care Code Global (54365) Diagnoses Closed nondisplaced fracture of medial malleolus of left tibia with routine healing, subsequent encounter S82.55XD Encounter type: subsequent encounter Fracture alignment: nondisplaced Fracture healing: with routine healing Diabetes mellitus E11.9
== END 2023-07-16 09:00 | disposition home or self-care (01) ==
PROVIDERS: PCP Internal Medicine; Visit Provider Physician Assistant
DX: S82.55XD Nondisplaced fracture of medial malleolus of left tibia, subsequent encounter for closed fracture with routine healing (principal); E11.9 Type 2 diabetes mellitus without complications
CPT/HCPCS: 99024

== ENCOUNTER 2023-07-16 09:44 | Outpatient (REF) | payer OTHER, SELFPAY ==
--- NOTE | ~2023-07-16 | XR_ITS ---
EXAMINATION: XR ANKLE, LEFT CLINICAL INFORMATION: Fracture follow-up COMPARISON: Radiographs 06/18/2023 TECHNIQUE: AP, lateral, and mortise views of the left ankle. FINDINGS: Best demonstrated on the oblique view is the nondisplaced transverse fracture none of the medial malleolus at the junction with the tibial plafond. The fracture line is less apparent at the articular surface suggesting there may be some partial healing. Otherwise unremarkable. XR/XR ankle LT min 3V IMPRESSION: Probable partial healing of the nondisplaced medial malleolus fracture.
== END 2023-07-16 09:45 | disposition home or self-care (01) ==
LOC: HO.HOSX 09:44
PROVIDERS: Visit Provider Physician Assistant
DX: S82.55XD Nondisplaced fracture of medial malleolus of left tibia, subsequent encounter for closed fracture with routine healing (principal); V00-Y99 External causes of morbidity
CPT/HCPCS: 73610; 99212

== ENCOUNTER 2023-08-17 08:31 | Outpatient (REF) | payer OTHER, SELFPAY | END 2023-08-17 08:32 | disposition home or self-care (01) | LOC: HO.HOSX 08:31 | PROVIDERS: Visit Provider Physician Assistant | DX: Z13.89 Encounter for screening for other disorder (principal) ==

== ENCOUNTER 2023-09-10 07:57 | Outpatient (REF) | payer OTHER, SELFPAY ==
--- NOTE | ~2023-09-10 | MM_ITS ---
EXAMINATION: BONE DENSITOMETRY CLINICAL INDICATION: Disorder of bone, unspecified. COMPARISON: This is the patient's baseline examination. TECHNIQUE: Using a [employer] DXA System (software version: 13.1) manufactured by [employer], dual-energy x-ray absorptiometry was performed of the lumbar spine and left hip. The images are of good technical quality. Summary results are attached. FINDINGS: LEFT FEMUR, NECK: BMD 1.074 g/cm2, Z-score 1.4, T-score 0.0, normal. LEFT FEMUR, TOTAL: BMD 1.093 g/cm2, Z-score 0.8, T-score -0.1, normal. AP SPINE L1-L4: BMD 1.223 g/cm2, Z-score 1.0, T-score 0.0, normal. IDENTIFIED RISK FACTORS: History of fracture (adult), current smoker. HISTORY OF FRACTURE: Other. MEDICATIONS: None listed. MM/XR DEXA axial skeleton IMPRESSION: 1. DIAGNOSIS: Normal bone density based on the lowest T-score value of -0.1 in the total femur applying World Health Organization criteria. 2. 10-YEAR FRACTURE RISK PREDICTION, FRAX: According to the guidelines, FRAX calculation should only be performed on patients in the osteopenia bone density category. Therefore, FRAX was not performed on this patient. 3. Treatment Recommendations: NOF guidelines recommend consideration for treatment in postmenopausal women and men age 50 and older presenting with the following: -A hip or vertebral (clinical or morphometric) fracture. -T-score less than or equal to -2.5 at the femoral neck or spine after appropriate evaluation to exclude secondary causes. -Low bone mass at the hip or spine and a 10-year fracture probability by FRAX of greater than or equal to 3% for hip fracture or greater than or equal to 20% for major osteoporotic fracture based on the [place] adapted WHO algorithm. 4. Other Recommendations: All treatment decisions require clinical judgment and consideration of individual patient factors, including patient preferences, comorbidities, previous drug use, risk factors not captured in the FRAX model (e.g. frailty, falls, vitamin D deficiency, increased bone turnover, interval significant decline in bone density) and possible under or overestimation of fracture risk by FRAX. FUTURE SCAN RECOMMENDATION: People with diagnosed cases of osteoporosis or at high risk for fracture should have regular bone mineral density tests. For patients eligible for Medicare, routine testing is allowed once every 2 years. The testing frequency can be increased to one year for patients who have rapidly progressing disease, those who are receiving or discontinuing medical therapy to restore bone mass, or have additional risk factors.
== END 2023-09-10 07:58 | disposition home or self-care (01) ==
LOC: HO.MAMMO 07:57
PROVIDERS: PCP Internal Medicine; Visit Provider Nurse Practitioner
DX: Z94.84 Stem cells transplant status (principal)
CPT/HCPCS: 77080

== ENCOUNTER 2023-10-19 09:44 | Outpatient (AMB) | payer OTHER, SELFPAY ==
[2023-10-19 09:46] VITALS: BP 110/72; PULSE 92; O2SAT 99; BMI 19.7
--- NOTE | 2023-10-19 09:46 | A.OFFPC_ITS ---
Vital Signs 10/19/23 09:46 Height 5 ft 7 in Weight 126 lb BMI 19.7 BP 110/72 Blood Pressure Location Lt brachial Position Sitting Pulse 92 Pulse Source Pulse Oximeter Pulse Oximetry (%) 99 Oxygen Delivery Method Room Air Intake Visit Reasons: Annual Exam- NEEDS A1C Stunner Animal Required: No Underwriting Consultant: Offered and Declined Accompanied by: Self / Same As Patient Allergies No Known Allergies Allergy (Verified 10/19/23 09:46) Medication List - Last Reconciled 10/20/23 by Desmond Blount MD acetaminophen (Tylenol Extra Strength) 500 mg PO Q6H PRN amoxicillin-pot clavulanate 500-125 mg (Augmentin) 1 tab PO BID blood sugar diagnostic (FreeStyle Lite Strips) use 3 times a day cyanocobalamin (vitamin B-12) (Vitamin B-12) 2,000 mcg PO DAILY folic acid 1 mg PO DAILY glyburide 5 mg PO DAILY lancets (FreeStyle Lancets) to use three times a day metformin 1,000 mg PO DAILY quetiapine 50 mg PO BEDTIME Tobacco use date assessed: 06/28/23 Dental Screening Dental Screen Date: 06/28/23 HPI Annual Exam- NEEDS A1C HPI Details DM; compliant [facility], LAT[facility] Surgical History History of stem cell transplant History of appendectomy Family History Father Heart attack Brother Liver transplant complication Social History (Updated 07/16/23 @ 08:34 by Basia Hickman) Housing: Apartment Alcohol intake: never Patient Tobacco Use Status: Current everyday Tobacco user Tobacco use type: Cigarette Cigarette Packs Per Day: 1 Cigarettes Per Day: 20 e-Cigarette/Vaping Use: Never Used Second Hand Smoke Exposure: No Substance Use Type: Marijuana service: No Current occupational status: disabled Cognitive needs: No Hearing needs: No Vision needs: No Questionnaire Thrive Questionnaire Date Thrive assessed: 06/28/23 KEILA-7 AMB Questionnaire KEILA-7 Date KEILA - 7 assessed: 06/28/23 Source: Developed by Drs. Rich Bartholomew, Carol Godinez, Ishan Aviles and colleagues, with an educational karthik from [employer]. Review of Systems Const Denies chills, Denies fatigue, Denies headache(s) and Denies weight loss Eyes Denies change in vision, Denies diplopia and Denies eye pain ENT Denies vertigo, Denies dizziness, Denies headache(s) and Denies nasal discharge Card Denies chest pain, Denies rapid heart rate and Denies dyspnea on exertion Resp Denies chest congestion, Denies cough, Denies pain with cough and Denies dyspnea on exertion GI Denies abdominal pain, Denies hematochezia and Denies change in bowel habits Musc Denies myalgias, Denies arthralgias and Denies joint swelling Skin/Breast Denies lesions and Denies unusual bruising Neuro Denies vertigo, Denies dizziness, Denies headache(s) and Denies focal weakness Endo Denies fatigue Physical exam (Primary Care) Vital Signs: Last Vital Signs Pulse 92 10/19/23 09:46 BP 110/72 10/19/23 09:46 Pulse Ox 99 10/19/23 09:46 Oxygen Delivery Method Room Air 10/19/23 09:46 BMI result Body Mass Index 19.7 Tobacco/Smoking Status: Tobacco use Status Tobacco use date assessed 06/28/23 10/19/23 09:47 Patient Tobacco Use Status Current everyday Tobacco 10/19/23 09:47 Tobacco use type Cigarette 10/19/23 09:47 e-Cigarette/Vaping Use Never Used 10/19/23 09:47 Thrive Assessment: Date of Thrive Assessment Date Thrive assessed 06/28/23 10/19/23 09:47 Const General: cooperative, healthy appearing and no acute distress Orientation/consciousness: oriented to person, oriented to place and oriented to time [facility] Head: Yes normal to inspection, Yes normocephalic and Yes atraumatic Mouth: Normal oral and palatal mucosa present and tongue normal Throat: Yes posterior oropharynx normal and Yes uvula midline Eyes General: appearance normal, both eyes and all related structures Neck Neck: Yes normal visual inspection, Yes full ROM and Yes no lymphadenopathy Thyroid: Thyroid normal Carotids: normal carotid upstroke Chest Chest palpation & inspection: normal inspection of the chest Resp Effort & Inspection: normal respiratory effort and able to speak in complete sentences Auscultation: clear to auscultation bilaterally Cardio Jugular venous distension: no JVD Palpation: normal PMI Rate: regular rate Rhythm: regular rhythm Heart sounds: S1 normal heart sound present and S2 normal heart sound present GI Inspection: Yes normal to inspection Palpation (GI): Soft to palpation and No hepatosplenomegaly present Auscultation: normal bowel sounds General: Yes no CVA tenderness Back/Spine/Pelvis Back: no CVA tenderness Skin General skin exam: no rashes or lesions noted Neuro General: oriented to person, oriented to place and oriented to time Extrem General: Yes normal to inspection and Yes full ROM Results AMB Hemoglobin A1c AMB Hemoglobin A1c 6.2 % Last Edit by CARLIE Sierra on 10/19/23 10:00 Results Reviewed Results Reviewed: Laboratory Last Values Hgb A1c (Clinic) 6.2 % (4.0-6.0) H 10/19/23 09:47 Assessment and Plan Assessment & Plan (1) Diabetes mellitus: Code(s): E11.9 - Type 2 diabetes mellitus without complications Plan: stable; same rx (2) Physical exam: Code(s): Z00.00 - Encounter for general adult medical examination without abnormal findi ngs Plan: stable; do labs Orders: Orders AMB Hemoglobin A1c 10/19/23 E11.9 - Type 2 diabetes mellitus without complications Coding Level of Care Code Est Pt Prev Care 40-64y(54208) Diagnoses Diabetes mellitus E11.9 Physical exam Z00.00
== END 2023-10-19 10:05 | disposition home or self-care (01) ==
PROVIDERS: PCP Internal Medicine; Visit Provider Internal Medicine
DX: E11.9 Type 2 diabetes mellitus without complications (principal)
CPT/HCPCS: 83036; 99396

== ENCOUNTER 2024-01-19 08:22 | Outpatient (AMB) | payer OTHER, SELFPAY ==
[2024-01-19 08:31] VITALS: BP 118/78; PULSE 99; O2SAT 98; BMI 19.6
--- NOTE | 2024-01-19 08:31 | MHC.PC.OV ---
Vital Signs 01/19/24 08:31 Height 5 ft 7 in Weight 125 lb BMI 19.6 BP 118/78 Blood Pressure Location Lt brachial Position Sitting Pulse 99 Pulse Source Pulse Oximeter Pulse Oximetry (%) 98 Oxygen Delivery Method Room Air Intake Visit Reasons: 3mth f/u [employer] Floorperson Required: No Accompanied by: Self / Same As Patient Allergies No Known Allergies Allergy (Verified 01/19/24 08:39) Medication List - Last Reconciled 01/19/24 by Desmond Blount MD acetaminophen (Tylenol Extra Strength) 500 mg PO Q6H PRN blood sugar diagnostic (FreeStyle Lite Strips) use 3 times a day cyanocobalamin (vitamin B-12) (Vitamin B-12) 2,000 mcg PO DAILY folic acid 1 mg PO DAILY glyburide 5 mg PO DAILY lancets (FreeStyle Lancets) to use three times a day metformin 1,000 mg PO DAILY quetiapine 50 mg PO BEDTIME Tobacco use date assessed: 01/19/24 Dental Screening Dental Screen Date: 06/28/23 HPI 3mth f/u HPI Details DM; has not done labs; compliant with meds [facility] Surgical History History of stem cell transplant History of appendectomy Family History Father Heart attack Brother Liver transplant complication Social History (Updated 07/16/23 @ 08:34 by Basia Hickman) Housing: Apartment Alcohol intake: never Patient Tobacco Use Status: Current everyday Tobacco user Tobacco use type: Cigarette Cigarette Packs Per Day: 1 Cigarettes Per Day: 20 e-Cigarette/Vaping Use: Never Used Second Hand Smoke Exposure: No Substance Use Type: Marijuana service: No Current occupational status: disabled Cognitive needs: No Hearing needs: No Vision needs: No Questionnaire PHQ-9 Over the last 2 weeks, how often have you been bothered by any of the following problems? 1. Little interest or pleasure in doing things: not at all 2. Feeling down, depressed, or hopeless: not at all 3. Trouble falling or staying asleep, or sleeping too much: not at all 4. Feeling tired or having little energy: not at all 5. Poor appetite or overeating: not at all 6. Feeling bad about yourself - or that you are a failure or have let yourself or your family down: not at all 7. Trouble concentrating on things, such as reading the newspaper or watching television: not at all 8. Moving or speaking so slowly that other people could have noticed. Or the opposite - being so fidgety or restless that you have been moving around a lot more than usual: not at all 9. Thoughts that you would be better off or of hurting yourself in some way: not at all Total score: 0 Depression Screening Interpretation: Negative Depression Screening Done: Yes 68377 - PHQ-9 Billing: Yes Source: Developed by Drs. Rich Bartholomew, Carol Godinez, Ishan Aviles and colleagues, with an educational karthik from [employer]. Thrive Questionnaire Date Thrive assessed: 06/28/23 Are you currently unemployed and looking for a job?: No AUDIT C Alcohol Use Questionnaire (AUDIT-C) 1. How often do you have a drink containing alcohol?: Never 3. How often do you have six or more drinks on one occasion?: Never Total Score: 0 KEILA-7 AMB Questionnaire KEILA-7 Date KEILA - 7 assessed: 06/28/23 Source: Developed by Drs. Rich Bartholomew, Carol Godinez, Ishan Aviles and colleagues, with an educational karthik from [employer]. Review of Systems Const Denies chills, Denies headache(s) and Denies weight loss ENT Denies headache(s) Card Denies chest pain, Denies syncope, Denies irregular heart rhythm and Denies dyspnea Resp Denies chest congestion, Denies cough and Denies dyspnea GI Denies abdominal pain, Denies change in stool character, Denies nausea and Denies vomiting Musc Denies deformity and Denies joint swelling Neuro Denies syncope and Denies headache(s) Physical exam (Primary Care) Vital Signs: Last Vital Signs Pulse 99 01/19/24 08:31 BP 118/78 01/19/24 08:31 Pulse Ox 98 01/19/24 08:31 Oxygen Delivery Method Room Air 01/19/24 08:31 BMI result Body Mass Index 19.6 Tobacco/Smoking Status: Tobacco use Status Tobacco use date assessed 01/19/24 01/19/24 08:40 Patient Tobacco Use Status Current everyday Tobacco 01/19/24 08:33 Tobacco use type Cigarette 01/19/24 08:33 e-Cigarette/Vaping Use Never Used 01/19/24 08:33 PHQ-9: PHQ-9 Score PHQ-9: Total score 0 01/19/24 08:40 Depression Screening Interpretation: Negative Thrive Assessment: Date of Thrive Assessment Date Thrive assessed 06/28/23 01/19/24 08:33 Const General: cooperative, comfortable, no acute distress and alert Neck Neck: Yes no lymphadenopathy Thyroid: Thyroid normal Resp Effort & Inspection: normal respiratory effort Auscultation: clear to auscultation bilaterally Percussion: percussion normal Cardio Jugular venous distension: no JVD Palpation: normal PMI Rate: regular rate Rhythm: regular rhythm Heart sounds: S1 normal heart sound present and S2 normal heart sound present GI Inspection: Yes normal to inspection Palpation (GI): No hepatosplenomegaly present Skin General skin exam: no rashes or lesions noted Extrem General: Yes no clubbing, cyanosis or edema Results AMB Hemoglobin A1c AMB Hemoglobin A1c 8.9 % Last Edit by Socorro Guzman CMA on 01/19/24 08:48 Results Reviewed Results Reviewed: Laboratory Last Values Hgb A1c (Clinic) 8.9 % (4.0-6.0) H 01/19/24 08:40 Coding Level of Care Code Est Pt Level 3 (72248) Diagnoses Diabetes mellitus E11.9 Assessment & Plan Assessment & Plan (1) Diabetes mellitus: Code(s): E11.9 - Type 2 diabetes mellitus without complications Category: Medical Plan: do labs Orders: Orders AMB Hemoglobin A1c Today E11.9 - Type 2 diabetes mellitus without complications
== END 2024-01-19 08:50 | disposition home or self-care (01) ==
PROVIDERS: PCP Internal Medicine; Visit Provider Internal Medicine
DX: E11.9 Type 2 diabetes mellitus without complications (principal)

== ENCOUNTER → 2024-01-19 08:22 | Outpatient (BNVA) | payer OTHER, SELFPAY | PROVIDERS: PCP Internal Medicine; Visit Provider Internal Medicine | DX: E11.9 Type 2 diabetes mellitus without complications (principal) | CPT/HCPCS: 83036; 96127; 99212 ==

== ENCOUNTER 2024-04-21 08:39 | Outpatient (AMB) | payer OTHER, SELFPAY ==
--- NOTE | 2024-04-21 08:42 | MHC.PC.OV ---
Vital Signs 04/21/24 08:45 Height 5 ft 7 in Weight 120 lb 6 oz BMI 18.9 BP 138/86 Blood Pressure Location Lt brachial Position Sitting Pulse 98 Pulse Source Pulse Oximeter Pulse Oximetry (%) 98 Oxygen Delivery Method Room Air Intake Visit Reasons: 3mth f/u Intake Note: Patient is here to follow up on DM. Head Swamper Required: No Sheet Metal Insulator: Not Required per policy Accompanied by: Self / Same As Patient Allergies No Known Allergies Allergy (Verified 04/21/24 08:44) Medication List - Last Reconciled 04/21/24 by Desmond Blount MD acetaminophen (Tylenol Extra Strength) 500 mg PO Q6H PRN blood sugar diagnostic (FreeStyle Lite Strips) use 3 times a day cyanocobalamin (vitamin B-12) (Vitamin B-12) 2,000 mcg PO DAILY folic acid 1 mg PO DAILY glyburide 5 mg PO DAILY lancets (FreeStyle Lancets) to use three times a day metformin 1,000 mg PO DAILY quetiapine 50 mg PO BEDTIME Tobacco use date assessed: 04/21/24 Dental Screening Dental Screen Date: 04/21/24 Did you have a dental visit in the last 12 months?: No Did you have a dental problem in the last 6 months where you did not have access to dental care?: No Was dental information given to patient?: No HPI 3mth f/u HPI Details DM; poorly compliant [facility] Surgical History History of stem cell transplant History of appendectomy Family History Father Heart attack Brother Liver transplant complication Social History Housing: Apartment Alcohol intake: never Patient Tobacco Use Status: Current everyday Tobacco user Tobacco use type: Cigarette Cigarette Packs Per Day: 1 Cigarettes Per Day: 20 e-Cigarette/Vaping Use: Never Used Second Hand Smoke Exposure: Yes Substance Use Type: Marijuana service: No Current occupational status: disabled Cognitive needs: No Hearing needs: No Vision needs: No Questionnaire PHQ-9 Over the last 2 weeks, how often have you been bothered by any of the following problems? 1. Little interest or pleasure in doing things: several days 2. Feeling down, depressed, or hopeless: nearly every day 3. Trouble falling or staying asleep, or sleeping too much: not at all 4. Feeling tired or having little energy: not at all 5. Poor appetite or overeating: not at all 6. Feeling bad about yourself - or that you are a failure or have let yourself or your family down: not at all 7. Trouble concentrating on things, such as reading the newspaper or watching television: not at all 8. Moving or speaking so slowly that other people could have noticed. Or the opposite - being so fidgety or restless that you have been moving around a lot more than usual: not at all 9. Thoughts that you would be better off or of hurting yourself in some way: not at all Total score: 4 Depression Screening Interpretation: Positive Depression Screening Done: Yes Source: Developed by Drs. Rich Bartholomew, Carol Godinez, Ishan Aviles and colleagues, with an educational karthik from [employer]. Thrive Questionnaire Date Thrive assessed: 04/21/24 I am a: Patient What is your living situation today?: I have a steady place to live Within the past 12 months, did the food you bought not last and you didn't have the money to get more?: Never true Within the past 12 months, did you worry whether your food would run out before you got money to buy more?: Never true Do you have trouble paying for medicines?: No Do you have trouble getting transportation to medical appointments?: No Do you have trouble paying your heating and electricity bill?: No Do you have trouble taking care of your child, family member or friend?: No Do you have trouble with day-to-day activities such as bathing, preparing meals, shopping, managing finances, etc.?: No Are you currently unemployed and looking for a job?: No Are you interested in more education?: No Please select the resources that you would like help with: None Currently or been in a relationship where the following occur: No concerns reported THRIVE Score: 0 AUDIT C Alcohol Use Questionnaire (AUDIT-C) 1. How often do you have a drink containing alcohol?: Never Total Score: 0 KEILA-7 AMB Questionnaire KEILA-7 Date KEILA - 7 assessed: 04/21/24 Feeling nervous, anxious, or on edge: 3 = Nearly every day Not being able to stop or control worryin = More than half the days Worrying too much about different things: 2 = More than half the days Trouble relaxin = Several days Being so restless that it is hard to sit still: 1 = Several days Becoming easily annoyed or irritable: 1 = Several days Feeling afraid as if something awful might happen: 2 = More than half the days Total KEILA-7 score (0-4 normal; 5-9 mild; 10-14 moderate; 15-21 severe): 12 Source: Developed by Drs. Rich Bartholomew, Carol Godinez, Ishan Aviles and colleagues, with an educational karthik from [employer]. Review of Systems Const Denies chills, Denies headache(s) and Denies weight loss ENT Denies headache(s) Card Denies chest pain, Denies syncope, Denies irregular heart rhythm and Denies dyspnea Resp Denies chest congestion, Denies cough and Denies dyspnea GI Denies abdominal pain, Denies change in stool character, Denies nausea and Denies vomiting Musc Denies deformity and Denies joint swelling Neuro Denies syncope and Denies headache(s) Physical exam (Primary Care) Vital Signs: Last Vital Signs Pulse 98 04/21/24 08:45 BP 138/86 04/21/24 08:45 Pulse Ox 98 04/21/24 08:45 Oxygen Delivery Method Room Air 04/21/24 08:45 BMI result Body Mass Index 18.9 Tobacco/Smoking Status: Tobacco use Status Tobacco use date assessed 04/21/24 04/21/24 08:52 Patient Tobacco Use Status Current everyday Tobacco 04/21/24 08:52 Tobacco use type Cigarette 04/21/24 08:52 e-Cigarette/Vaping Use Never Used 04/21/24 08:52 PHQ-9: PHQ-9 Score PHQ-9: Total score 4 04/21/24 08:52 Depression Screening Interpretation: Positive Thrive Assessment: Date of Thrive Assessment Date Thrive assessed 04/21/24 04/21/24 08:52 Currently or been in a relationship where the following occur: No concerns reported Const General: cooperative, comfortable, no acute distress and alert Neck Neck: Yes no lymphadenopathy Thyroid: Thyroid normal Resp Effort & Inspection: normal respiratory effort Auscultation: clear to auscultation bilaterally Percussion: percussion normal Cardio Jugular venous distension: no JVD Palpation: normal PMI Rate: regular rate Rhythm: regular rhythm Heart sounds: S1 normal heart sound present and S2 normal heart sound present GI Inspection: Yes normal to inspection Palpation (GI): No hepatosplenomegaly present Skin General skin exam: no rashes or lesions noted Extrem General: Yes no clubbing, cyanosis or edema Results AMB Hemoglobin A1c AMB Hemoglobin A1c > 14 % Last Edit by CARLIE Tobin on 04/21/24 08:55 Results Reviewed Results Reviewed: Laboratory Last Values Hgb A1c (Clinic) > 14 % (4.0-6.0) H 04/21/24 08:42 Coding Level of Care Code Est Pt Level 3 (69266) Diagnoses Diabetes mellitus E11.9 Assessment & Plan Assessment & Plan (1) Diabetes mellitus: Code(s): E11.9 - Type 2 diabetes mellitus without complications Category: Medical Plan: labs ordered Orders: Orders Lipid Panel Today Z13.220 - Encounter for screening for lipoid disorders Thyroid Stimulating Hormone Today Z13.29 - Encounter for screening for other suspected endocrine disorder Comprehensive [place]. Panel Fast Today Z13.9 - Encounter for screening, unspecified Microalbumin, Random (w Creat) Today E11.69 - Type 2 diabetes mellitus with other specified complication, E66.01 - Morbid (severe) obesity due to excess calories AMB Hemoglobin A1c Today E11.9 - Type 2 diabetes mellitus without complications Complete Blood Count Auto Diff Today Z13.0 - Encounter for screening for diseases of the blood and blood-forming organs and certain disorders involving the immune mechanism Hemoglobin A1c Today R73.9 - Hyperglycemia, unspecified Medications: Refilled glyburide 5 mg PO DAILY 30 tabs 0RF
[2024-04-21 08:45] VITALS: BP 138/86; PULSE 98; O2SAT 98; BMI 18.9
== END 2024-04-21 08:58 | disposition home or self-care (01) ==
PROVIDERS: PCP Internal Medicine; Visit Provider Internal Medicine
DX: E11.9 Type 2 diabetes mellitus without complications (principal)

== ENCOUNTER → 2024-04-21 08:39 | Outpatient (BNVA) | payer OTHER, SELFPAY | PROVIDERS: PCP Internal Medicine; Visit Provider Internal Medicine | DX: E11.9 Type 2 diabetes mellitus without complications (principal) | CPT/HCPCS: 83036; 99212 ==

== ENCOUNTER 2025-01-10 15:20 | Outpatient (AMB) | payer OTHER, SELFPAY ==
[2025-01-10 15:31] VITALS: BP 122/72; PULSE 100; O2SAT 98; BMI 19.1
--- NOTE | 2025-01-10 15:31 | MHC.PC.OV ---
Vital Signs 01/10/25 15:31 Height 5 ft 7 in Weight 122 lb BMI 19.1 BP 122/72 Blood Pressure Location Lt brachial Position Sitting Pulse 100 Pulse Source Pulse Oximeter Pulse Oximetry (%) 98 Oxygen Delivery Method Room Air Intake Visit Reasons: ORTEGA DR Jose Alejandro CLIFFORD Allergies No Known Allergies Allergy (Verified 01/11/25 21:40) Medication List - Last Reconciled 01/11/25 by JULIETTE Ann acetaminophen (Tylenol Extra Strength) 500 mg PO Q6H PRN blood sugar diagnostic (FreeStyle Lite Strips) use 3 times a day cyanocobalamin (vitamin B-12) (Vitamin B-12) 2,000 mcg (2 x 1,000 mcg) PO DAILY empagliflozin (Jardiance) 25 mg PO DAILY folic acid 1 mg PO DAILY glyburide 5 mg PO DAILY lancets (FreeStyle Lancets) to use three times a day magnesium oxide 400 mg PO BEDTIME metformin ER (Glucophage XR) 1,000 mg (2 x 500 mg) PO BID quetiapine 50 mg PO BEDTIME Tobacco use date assessed: 04/21/24 Dental Screening Dental Screen Date: 04/21/[address] Blount RE HPI Details The patient is a 59-year-old male presenting to transition care from Dr. Blount who retired. Significant past medical history of type 2 diabetes, anemia, thrombocytosis, status post bone marrow transplant in 2009. The patient is presenting today with an extremely elevated HbA1c level. The HbA1c level is greater than 14%, indicating poor glycemic control. The patient has not been taking diabetic medications consistently, which may have contributed to the elevated levels. The patient has a history of anemia, which was noted in previous lab results. The anemia is suspected to be related to vitamin B12 or folate deficiency, as indicated by high levels of MCV and MCH in past lab results. 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 Post-transplant, the patient reports doing well and gaining weight quickly. Now, the patient thinks that he is losing weight reports a weight loss of over 40 lbs. This isn't indicated in chart review, it shows that the patient has lost weight over an extended period, For instance, in 2020 the patient weight was 139 lbs and today the patient weight is 122 lbs. The patient experiences muscle cramps, and was recommended to take magnesium oxide 400 mg at night and ensure adequate fluid hydration . The patient reports visual disturbances, likely related to uncontrolled diabetes. A referral to an medical officer psychiatry is planned to address these issues. 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 In 2014, he developed a normalization of his platelet count with a mild anemia, and he was instructed to stop taking hydroxyurea. [facility] Surgical History History of stem cell transplant History of appendectomy Family History Father Heart attack Brother Liver transplant complication Social History Housing: Apartment Alcohol intake: never Patient Tobacco Use Status: Current everyday Tobacco user Tobacco use type: Cigarette Cigarette Packs Per Day: 1 Cigarettes Per Day: 20 e-Cigarette/Vaping Use: Never Used Second Hand Smoke Exposure: Yes Substance Use Type: Marijuana service: No Current occupational status: disabled Cognitive needs: No Hearing needs: No Vision needs: No Questionnaire Thrive Questionnaire Date Thrive assessed: 04/21/24 KEILA-7 AMB Questionnaire KEILA-7 Date KEILA - 7 assessed: 04/21/24 Source: Developed by Drs. Rich Bartholomew, Carol Godinez, Ishan Aviles and colleagues, with an educational karthik from [employer]. Review of Systems Const Denies headache(s) and Reports lethargy Eyes Reports blurry vision and Denies loss of vision ENT Denies vertigo, Denies dizziness, Denies headache(s) and Denies sore throat Card Denies chest pain, Denies leg edema and Denies lightheadedness Resp Denies cough, Denies hemoptysis and Denies wheezing GI Denies abdominal pain, Denies melena, Denies constipation, Denies diarrhea and Denies vomiting Denies dysuria, Denies urinary frequency and Denies urinary urgency Musc Denies arthralgias, Denies joint swelling, Reports muscle cramps (Bilateral legs), Denies numbness and Denies tingling Neuro Denies Abnormal speech present, Denies behavioral changes, Denies vertigo, Denies dizziness, Denies headache(s), Denies loss of vision, Denies memory loss, Denies numbness and Denies tingling Psych Denies anxiety, Denies behavioral changes, Denies depression, Denies memory loss and Denies panic attacks Gerry/Lymph Denies easy bleeding and Denies easy bruising Aller/Immun Denies wheezing Physical exam (Primary Care) Vital Signs: Last Vital Signs Pulse 100 01/10/25 15:31 BP 122/72 01/10/25 15:31 Pulse Ox 98 01/10/25 15:31 Oxygen Delivery Method Room Air 01/10/25 15:31 BMI result Body Mass Index 19.1 Tobacco/Smoking Status: Tobacco use Status Tobacco use date assessed 04/21/24 01/10/25 15:32 Patient Tobacco Use Status Current everyday Tobacco 01/10/25 15:32 Tobacco use type Cigarette 01/10/25 15:32 e-Cigarette/Vaping Use Never Used 01/10/25 15:32 Thrive Assessment: Date of Thrive Assessment Date Thrive assessed 04/21/24 01/10/25 15:32 Const General: healthy appearing, no acute distress, alert and awake Nutritional Appearance: well nourished Orientation/consciousness: oriented to person, oriented to place and oriented to time HENMT Head: Yes normal to inspection Ears: TM's normal bilaterally General nose exam: Normal nasal mucous membranes and turbinates present Eyes Conjunctivae: conjunctivae normal Sclerae: sclerae normal Pupils: Equal, round and reactive pupils present Neck Neck: Yes no lymphadenopathy and Yes no JVD Thyroid: Thyroid normal Carotids: no bruits Resp Effort & Inspection: normal respiratory effort and not tachypneic Auscultation: no crackles, no rales, no rhonchi and no wheezes Cardio Rate: regular rate Rhythm: regular rhythm Heart sounds: no murmurs and normal S1 and S2 GI Palpation (GI): Soft to palpation, nontender, no hepatomegaly and no splenomegaly Auscultation: normal bowel sounds Skin General skin exam: no rashes or lesions noted and dry skin Neuro General: oriented to person, oriented to place and oriented to time Cranial nerves: Yes Equal, round and reactive pupils present Speech: No Abnormal speech present Gait exam (Neuro): Normal gait present Motor exam (neuro): no tremor noted Extrem Right upper extremity: full ROM Left upper extremity: full ROM Right lower extremity: full ROM; no edema Left lower extremity: full ROM; no edema Psych Mental Status: mental status grossly normal Speech and movement: Normal speech and movement present Affect: normal affect Attitude: cooperative Thought process: Normal thought process present Results AMB Hemoglobin A1c AMB Hemoglobin A1c 14.0 % Last Edit by Henrietta Means CMA on 01/10/25 15:48 Results Reviewed Results Reviewed: Laboratory Last Values Hgb A1c (Clinic) 14.0 % (4.0-6.0) H 01/10/25 15:32 Coding Level of Care Code Est Pt Level 4 (57546) Diagnoses Uncontrolled type 2 diabetes mellitus with hyperglycemia E11.65 Diabetes mellitus type: type 2 Blurry vision H53.8 Anemia, unspecified type D64.9 Anemia type: unspecified type Thrombocytosis D75.839 Tiredness R53.83 Weight loss R63.4 Muscle cramps R25.2 Time Spent (min) 41 Assessment & Plan Assessment & Plan (1) Uncontrolled diabetes mellitus with hyperglycemia: Code(s): E11.65 - Type 2 diabetes mellitus with hyperglycemia Category: Medical Qualifiers: Diabetes mellitus type: type 2 Qualified Code(s): E11.65 - Type 2 diabetes mellitus with hyperglycemia Plan: The patient's diabetes mellitus is poorly controlled with an HbA1c greater than 14%. The patient has not been taking diabetic medications consistently due to stomach issues form metformin, which may have contributed to the elevated levels. A plan to initiate extended-release metformin and glyburide was discussed, along with the possibility of adding Jardiance to help manage glucose levels. The patient was advised to monitor blood sugar levels at home and to follow up in three months, with earlier follow-up if lab results indicate. Patient reports that he does not have any diabetic supplies at home. A meter, strips, and lancets ordered. (2) Blurry vision: Code(s): H53.8 - Other visual disturbances Category: Medical Plan: The patient reports visual disturbances, likely related to uncontrolled diabetes. A referral to an medical officer psychiatry was planned to further evaluate and manage the visual symptoms. (3) Anemia: Code(s): D64.9 - Anemia, unspecified Category: Medical Qualifiers: Anemia type: unspecified type Qualified Code(s): D64.9 - Anemia, unspecified Plan: The patient has a history of anemia, possibly related to vitamin B12 or folate deficiency. Supplementation with vitamin B12 and folate was recommended to address the deficiency and support red blood cell production. (4) Thrombocytosis: Code(s): D75.839 - Thrombocytosis, unspecified Category: Medical Plan: Platelets has been normalized on previous labs. We will continue to monitor (5) Tiredness: Code(s): R53.83 - Other fatigue Category: Medical Plan: Suspected that his tiredness is related to his anemia or glucose control. Blood work ordered to further evaluate (6) Weight loss: Code(s): R63.4 - Abnormal weight loss Category: Medical Plan: No evidence of weight loss with a in his short period. The patient has gradually lost weight over the years. We will continue to monitor (7) Muscle cramps: Code(s): R25.2 - Cramp and spasm Category: Medical Plan: The patient experiences muscle cramps, which may be alleviated by adequate hydration and magnesium. Magnesium supplementation was suggested to alleviate the cramps, with insurance coverage to be verified. Orders: Orders Lipid Panel 01/10/25 D64.9 - Anemia, unspecified, D75.839 - Thrombocytosis, unspecified, E11.65 - Type 2 diabetes mellitus with hyperglycemia, J32.9 - Chronic sinusitis, unspecified, R53.83 - Other fatigue, S82.55XD - Nondisplaced fracture of medial malleolus of left tibia, subsequent encounter for closed fracture with routine healing UA CC w/rflx Micro + Cult 01/10/25 D64.9 - Anemia, unspecified, D75.839 - Thrombocytosis, unspecified, E11.65 - Type 2 diabetes mellitus with hyperglycemia, J32.9 - Chronic sinusitis, unspecified, R53.83 - Other fatigue, S82.55XD - Nondisplaced fracture of medial malleolus of left tibia, subsequent encounter for closed fracture with routine healing TSH reflex Free T4 01/10/25 D64.9 - Anemia, unspecified, D75.839 - Thrombocytosis, unspecified, E11.65 - Type 2 diabetes mellitus with hyperglycemia, J32.9 - Chronic sinusitis, unspecified, R53.83 - Other fatigue, S82.55XD - Nondisplaced fracture of medial malleolus of left tibia, subsequent encounter for closed fracture with routine healing Vitamin D 25-OH Total 01/10/25 D64.9 - Anemia, unspecified, D75.839 - Thrombocytosis, unspecified, E11.65 - Type 2 diabetes mellitus with hyperglycemia, J32.9 - Chronic sinusitis, unspecified, R53.83 - Other fatigue, S82.55XD - Nondisplaced fracture of medial malleolus of left tibia, subsequent encounter for closed fracture with routine healing AMB Hemoglobin A1c 01/10/25 Z13.9 - Encounter for screening, unspecified Complete Blood Count Auto Diff 01/10/25 D64.9 - Anemia, unspecified, D75.839 - Thrombocytosis, unspecified, E11.65 - Type 2 diabetes mellitus with hyperglycemia, J32.9 - Chronic sinusitis, unspecified, R53.83 - Other fatigue, S82.55XD - Nondisplaced fracture of medial malleolus of left tibia, subsequent encounter for closed fracture with routine healing Comprehensive [place]. Panel Fast 01/10/25 D64.9 - Anemia, unspecified, D75.839 - Thrombocytosis, unspecified, E11.65 - Type 2 diabetes mellitus with hyperglycemia, J32.9 - Chronic sinusitis, unspecified, R53.83 - Other fatigue, S82.55XD - Nondisplaced fracture of medial malleolus of left tibia, subsequent encounter for closed fracture with routine healing Vitamin B12 and Folate 01/10/25 D64.9 - Anemia, unspecified, D75.839 - Thrombocytosis, unspecified, E11.65 - Type 2 diabetes mellitus with hyperglycemia, J32.9 - Chronic sinusitis, unspecified, R53.83 - Other fatigue, S82.55XD - Nondisplaced fracture of medial malleolus of left tibia, subsequent encounter for closed fracture with routine healing Uric Acid 01/10/25 D64.9 - Anemia, unspecified, D75.839 - Thrombocytosis, unspecified, E11.65 - Type 2 diabetes mellitus with hyperglycemia, J32.9 - Chronic sinusitis, unspecified, R53.83 - Other fatigue, S82.55XD - Nondisplaced fracture of medial malleolus of left tibia, subsequent encounter for closed fracture with routine healing CRP High Sensitivity 01/10/25 D64.9 - Anemia, unspecified, D75.839 - Thrombocytosis, unspecified, E11.65 - Type 2 diabetes mellitus with hyperglycemia, J32.9 - Chronic sinusitis, unspecified, R53.83 - Other fatigue, S82.55XD - Nondisplaced fracture of medial malleolus of left tibia, subsequent encounter for closed fracture with routine healing Erythrocyte Sedimentation Rate 01/10/25 D64.9 - Anemia, unspecified, D75.839 - Thrombocytosis, unspecified, E11.65 - Type 2 diabetes mellitus with hyperglycemia, J32.9 - Chronic sinusitis, unspecified, R53.83 - Other fatigue, S82.55XD - Nondisplaced fracture of medial malleolus of left tibia, subsequent encounter for closed fracture with routine healing Referrals Ophthalmology Referral E11.65 - Type 2 diabetes mellitus with hyperglycemia, H53.8 - Other visual disturbances Medications: New lancets (FreeStyle Lancets) As directed check blood sugar three times a day 100 ea 3RF E11.65 - Type 2 diabetes mellitus with hyperglycemia metformin ER (Glucophage XR) 1,000 mg (2 x 500 mg) PO DAILY 30 tabs 3RF empagliflozin (Jardiance) 25 mg PO DAILY 90 tabs 3RF metformin ER (Glucophage XR) 1,000 mg (2 x 500 mg) PO BID 30 days 120 tabs 3RF metformin ER (Glucophage XR) A1c greater than 14% 1,000 mg (2 x 500 mg) PO BID 30 days 120 tabs 3RF E11.65 - Type 2 diabetes mellitus with hyperglycemia cyanocobalamin (vitamin B-12) (Vitamin B-12) 2,000 mcg (2 x 1,000 mcg) PO DAILY 90 tabs 3RF folic acid 1 mg PO DAILY 90 tabs 3RF magnesium oxide 400 mg PO BEDTIME 90 tabs 3RF blood-glucose meter (Freestyle [employer] meter) As directed 1 ea 0RF E11.65 - Type 2 diabetes mellitus with hyperglycemia blood sugar diagnostic (Freestyle [employer] strips) As directed check blood sugar thee times a day 50 ea 3RF Refilled glyburide 5 mg PO DAILY 30 tabs 3RF quetiapine 50 mg PO BEDTIME 90 tabs 3RF Discontinued metformin Discontinued Reason: Patient Refused 1,000 mg PO DAILY 90 tabs 2RF
--- OUTSIDE RECORDS SUMMARY | 2025-01-10 16:17 | XMS_ITS | Clinical Summary ---
Author Organization [employer] Address [address] [place] [address] [address] [place] [address] Care Team Providers Care Wash Worker Name Role Phone Unavailable Primary Care Provider Unavailabl e Allergies No known active allergies Medications Acetaminophen Extra Strength 500 MG tablet TAKE 1 TABLET ORALLY EVERY 6 HOURS NEEDED FOR FEVER OR PAIN 05/27/2023 Active [facility] Vitamin B12 1000 MCG tablet TAKE 2 TABLETS (2,000 MCG) BY MOUTH ONCE DAILY. 12/31/2022 Active QUEtiapine (SEROquel) 50 MG tablet Take 50 mg by mouth at bedtime. 03/17/2023 Active nystatin (Mycostatin) 001627 UNIT/ML suspension TAKE 5 ML (500,000 UNITS) BY MOUTH FOUR TIMES DAILY FOR 14 DAYS. SWISH IN MOUTH AND SPIT OUT. 07/06/2022 Active metFORMIN (Glucophage) 1000 MG tablet Take 1,000 mg by mouth in the morning. 10/30/2022 Active ketorolac (Toradol) 10 MG tablet TAKE 1 TABLET BY MOUTH THREE TIMES A DAY NEEDED FOR PAIN FOR 5 DAYS 05/27/2023 Active dexAMETHasone 0.5 MG/5ML solution TAKE 10 ML (1 MG) BY MOUTH TWICE DAILY FOR 10 DAYS. SWISH AND SPIT ONCE DAILY FOR 10 DAYS 03/18/2023 Active Social History Tobacco Use Types Packs/Day Years Used Date Smoking Tobacco: Every Day Cigarettes Smokeless Tobacco: Never Tobacco Cessation:Ready to Q uit: Not Asked; Counseling Given: Not Answered Alcohol Use Standard Drinks/Week Comments Never 0 (1 standard drink = 0.6 oz pur e alcohol) Sex and Gender Information Value Date Recorded Sex Assigned at Male 05/13/2023 8:34 AM EST Legal Sex Male 8:32 AM EST Gender Identity Male 05/13/2023 8:34 AM EST Sexual Orientation Straight 05/13/2023 8: 34 AM EST Last Filed Vital Signs Vital Sign Reading Time Taken Comments Blood Pressure 140/70 06/01/2023 8:05 AM EST Pulse 100 06/01/2023 8:05 AM EST Temperature - - Respiratory Rate - - Oxygen Saturation - - Inhaled Oxygen Concentration - - Weight - - Height - - Body Mass Index - - Plan of Treatment Health Maintenance Due Date Last Done Comments CT Colonography 1963 Colonoscopy 1963 Colorectal Cancer Screening 1963 Dental Prophylaxis 1963 Dental X-Ray: Bitewings 1963 Depression Screening 1963 FIT DNA/Cologuard 1963 FIT 1963 FOBT 1963 HIV Screening 1963 Lipid Panel 1963 SDOH Screening 1963 Sigmoidoscopy 1963 Disability Screening 1963 Alcohol/Substance Use Screening 1975 Hepatitis C Screening 07/13/1981 DTaP/Tdap/Td Vaccines (1 - Tdap) 07/13/1982 Pneumococcal Vaccine: 50+ Years (1 of 2 - PCV) 07/13/1982 Zoster Vaccines (2 of 2) 02/16/2022 12/22/2021 Hepatitis B Vaccines (3 of 3 - Hep B Twinrix 3-dose series) 05/24/2022 12/22/2021, 08/14/2021 Dental Oral Exam 12/01/2023 06/01/2023 Tobacco Screening 06/01/2024 06/01/2023 COVID-19 Vaccine (3 - 2024-2 6 season) 2024 01/16/2021, 12/26/2020 Influenza Vaccine (#1) 2024 02/22/2019 Dental X-Ray: Full Mouth 06/02/2026 06/01/2023 RSV Patients and Patients Aged 60 years or older (1 - 1-dose 75+ series) 07/13/2038 Hepatitis A Vaccines Aged Out 12/22/2021, 08/14/2021 No longer eligible based on patient's age to complete this topic Meningococcal B Vaccine Aged Out 12/22/2021 No l onger eligible based on patient's age to complete this topic HIB Vaccines Aged Out No longer eligi ble based on patient's age to complete this topic HPV Vaccines Aged Out No longer eligi ble based on patient's age to complete this topic IPV Vaccines Aged Out No longer eligi ble based on patient's age to complete this topic Meningococcal Vaccine Aged Out No donnell ken eligible based on patient's age to complete this topic RSV under 20 months Aged Out No longe r eligible based on patient's age to complete this topic Rotavirus Vaccines Aged Out No longer eligible based on patient's age to complete this topic Procedures Procedure Name Priority Date/Time Associated Diagnosis Comments PANORAMIC RADIOGRAPHIC IMAGE Routine 06/01/2023 8:00 AM EST Edentulism COMPREHENSIVE ORAL EVALUATION - NEW OR ESTABLISHED PATIENT Routine 06/01/2023 8:00 AM EST Edentulism from Last 3 Months or Most Recently Relevant to Health Maintenance Insurance [place] AD[place]
== END 2025-01-10 16:17 | disposition home or self-care (01) ==
LOC: HO.HMCH 15:21
DX: E11.65 Type 2 diabetes mellitus with hyperglycemia (principal); H53.8 Other visual disturbances; D64.9 Anemia, unspecified; D75.839 Thrombocytosis, unspecified; R53.83 Other fatigue; R63.4 Abnormal weight loss; R25.2 Cramp and spasm

== ENCOUNTER → 2025-01-10 15:20 | Outpatient (BNVA) | payer OTHER, SELFPAY | DX: E11.65 Type 2 diabetes mellitus with hyperglycemia (principal); R25.2 Cramp and spasm; D64.9 Anemia, unspecified; H53.8 Other visual disturbances; D75.839 Thrombocytosis, unspecified; R53.83 Other fatigue; R63.4 Abnormal weight loss | CPT/HCPCS: 83036; 99212 ==